=== PATIENT | male | born 1985 ===

== ENCOUNTER 2018-01-29 01:29 | Inpatient (IN) | payer SELFPAY ==
[2018-01-29 01:46] VITALS: BMI 21.4
--- NOTE | 2018-01-29 01:52 | ED PDOC ---
Arrival/HPI - General Chief Complaint: GI Problem Time Seen by Provider: 01/29/18 01:35 Historian: Family - History of Present Illness Narrative History of Present Illness (Text): 01/29/18 01:52 Atilio Rojas is a 32 year old male, whose past medical history includes epilepsy, who presents to the Emergency department brought in by EMS for chest pain. As per relative, present in ER, patient began experiencing chest pain and vomiting tonight, notes patient ate pizza earlier. On arrival to Emergency department, patient had 2 seizure episodes, brother states he does not know when patient's last seizure was. Limited HPI and ROs secondary to pt's sedation following Ativan today. Symptom Onset: Gradual Symptom Course: Unchanged Activities at Onset: Light Context: Home Past Medical History - Provider Review Nursing Documentation Reviewed: Yes Family/Social History - Physician Review Nursing Documentation Reviewed: Yes Family/Social History: Unknown Family HX Allergies/Home Meds Allergies/Adverse Reactions: Allergies No Known Allergies Allergy (Unverified 01/29/18 01:53) Review of Systems - Review of Systems Systems not reviewed;Unavailable: Other (seizure) Cardiovascular: Chest Pain Gastrointestinal: Vomiting Neurological: Seizure Physical Exam Vital Signs Reviewed: Yes Vital Signs Pulse Resp BP Pulse Ox 01/29/18 04:51 79 18 116/74 98 01/29/18 01:57 93 H 18 146/85 93 L Temperature: Afebrile Blood Pressure: Normal Pulse: Regular Respiratory Rate: Normal Appearance: Positive for: Well-Appearing, Non-Toxic, Comfortable Pain Distress: None Mental Status: Positive for: other (Sedated currently, post seizure) - Systems Exam Head: Present: Atraumatic, Normocephalic Pupils: Present: PERRL Extroacular Muscles: Present: EOMI Conjunctiva: Present: Normal Mouth: Present: Moist Mucous Membranes Neck: Present: Normal Range of Motion Respiratory/Chest: Present: Clear to Auscultation, Good Air Exchange. No: Respiratory Distress, Accessory Muscle Use Cardiovascular: Present: Regular Rate and Rhythm, Normal S1, S2. No: Murmurs Abdomen: No: Tenderness, Distention, Peritoneal Signs Back: Present: Normal Inspection Upper Extremity: Present: Normal Inspection. No: Cyanosis, Edema Lower Extremity: Present: Normal Inspection. No: Edema Neurological: Present: GCS=15, CN II-XII Intact, Speech Normal Skin: Present: Warm, Dry, Normal Color. No: Rashes Psychiatric: Present: Other (Sedated currently post seizure) Medical Decision Making ED Course and Treatment: 01/29/18 01:52 Impression: 32 year old male presents for chest pain and vomiting. Plan: -- CT Head w/o contrast -- EKG --Chest X-ray -- Labs, cardiac enzymes, lipase -- Zofran -- Ativan -- Reassess and disposition Progress Notes: Called to bedside, pt had 2 seizure episodes in ER. Ativan ordered. 01/29/18 04:22 CT Head shows: Brain: Unremarkable. No hemorrhage. No significant white matter disease. No edema. Ventricles: Unremarkable. No ventriculomegaly. Bones/joints: Unremarkable. No acute fracture. Soft tissues: Unremarkable. Sinuses: Unremarkable. No acute sinusitis. Mastoid air cells: Unremarkable. No mastoid effusion. Orbits: The globe and lens are intact. IMPRESSION: No evidence of an acute intracranial hemorrhage, midline shift or mass effect is identified. 01/29/18 04:00 Reviewed EKG, NSR at 99 bpm. Non-specific ST/T wave changes. 01/29/18 05:09 Chest X-ray reviewed, shows no acute processes. 01/29/18 04:43 Case discussed with medical grade shoemaker division service manager, who is aware and agrees with plan. Case discussed with Dr. York, who is aware and agrees with plan. Accepts pt in to hospitalist service. Pt will go to Telemetry observation for recurrent seizures and chest pain. - Lab Interpretations Lab Results: 01/29/18 02:12 01/29/18 02:12 Lab Results 01/29/18 02:12: WBC 7.9, RBC 4.80, Hgb 15.8, Hct 45.5, MCV 94.8, MCH 32.9, MCHC 34.7, RDW 13.7, Plt Count 226, MPV 9.9 01/29/18 02:12: Sodium 146, Potassium 3.6, Chloride 106, Carbon Dioxide 19 L, Anion Gap 24 H, BUN 21, Creatinine 1.3, Est GFR ( Amer) > 60, Est GFR ( Non-Af Amer) > 60, Random Glucose 98, Calcium 9.2, Total Bilirubin 0.5, AST 32, ALT 18, Alkaline Phosphatase 83, Lactate Dehydrogenase 340, Total Creatine Kinase 198, Troponin I < 0.01, Total Protein 7.6, Albumin 4.3, Globulin 3.2, Albumin/Globulin Ratio 1.3, Lipase 176 01/29/18 02:12: PT 10.0, INR 0.88 L, APTT 29.4 - RAD Interpretation Radiology Orders: 01/29/18 01:54 HEAD W/O CONTRAST [CT] Stat CHEST PORTABLE [RAD] Stat Service Loss Control Consultant: Radiologist - Medication Orders Current Medication Orders: Discontinued Medications Lorazepam (Ativan) 2 mg IVP ONCE ONE Stop: 01/29/18 02:01 Last Admin: 01/29/18 02:13 Dose: Lorazepam (Ativan) 2 mg IVP ONCE ONE Stop: 01/29/18 02:05 Last Admin: 01/29/18 02:14 Dose: Ondansetron HCl (Zofran Inj) 4 mg IVP ONCE ONE Stop: 01/29/18 02:05 Last Admin: 01/29/18 02:14 Dose: - Scribe Statement The provider has reviewed the documentation as recorded by the Prudence Lilly Provider Scribe Attestation: All medical record entries made by the Simeoniblily were at my direction and personally dictated by me. I have reviewed the chart and agree that the record accurately reflects my personal performance of the history, physical exam, medical decision making, and the department course for this patient. I have also personally directed, reviewed, and agree with the discharge instructions and disposition. Disposition/Present on Arrival - Present on Arrival Any Indicators Present on Arrival: No History of DVT/PE: No History of Uncontrolled Diabetes: No Urinary Catheter: No History of Decub. Ulcer: No History Surgical Site Infection Following: None - Disposition Have Diagnosis and Disposition been Completed?: Yes Diagnosis: Recurrent seizures, Chest pain Disposition: HOSPITALIZED Disposition Time: 03:49 Patient Plan: Observation Patient Problems: Current Active Problems Problem Status Onset Chest pain Acute Recurrent seizures Acute Condition: STABLE
[2018-01-29 02:29] LABS: HEMOGLOBIN 15.8 g/dL (14.0-18.0); MEAN CELL VOLUME 94.8 fl (80.0-105.0); MEAN CORPUSCULAR HEMOGLOBIN 32.9 pg (25.0-35.0); MEAN CORPUSCULAR HGB CONC 34.7 g/dl (31.0-37.0); MEAN PLATELET VOLUME 9.9 fl (7.0-11.0); RBC 4.8 10^6/uL (3.5-6.1); RED CELL DISTRIBUTION WIDTH 13.7 % (11.5-14.5); WHITE BLOOD COUNT 7.9 10^3/ul (4.5-11.0)
[2018-01-29 02:34] LABS: ALB/GLOB RATIO 1.3 (1.1-1.8); ALBUMIN 4.3 g/dL (3.0-4.8); ALT/SGPT 18 U/L (7-56); AST/SGOT 32 U/L (17-59); BLOOD UREA NITROGEN 21 mg/dL (7-21); CALCIUM 9.2 mg/dL (8.4-10.5); GFR AFRICAN-AMERICAN > 60; GFR NON-AFRICAN AMERICAN > 60; LIPASE 176 U/L (23-300)
[2018-01-29 02:36] LABS: INR 0.88 (0.93-1.08); PARTIAL THROMBOPLASTIN TIME 29.4 Seconds (25.1-36.5)
[2018-01-29 02:45] LABS: TROPONIN I < 0.01 ng/mL
--- NOTE | 2018-01-29 06:10 | CP.PCM.HP ---
<Agustin Baldwin - Last Filed: 01/29/18 07:21> History of Present Illness - History of Present Illness History of Present Illness: Agustin Baldwin D.O. PGY-1, Internal Medicine Resident, History and Physical for Dr York. Pt is a 32 yo male with a PMH of epilepsy presents to the ED after vomiting for approximately 30 mins. Per his brother, the pt began vomiting after he ate pizza. The vomiting began "normal" and later had about a teaspoon of blood in it. Pt had epigastric pain before vomiting. His brother reports that the pt lives in [facility] and is [place] the [place]. History and ROS limited due to pt postictal state. Pt takes Lamotrigin 100mg. Pt had witnessed seuzure while in the hospital. Pt's brother reports that he has had seizures like this before, but he is not sure when. PMH: seizure disorder PSH: unknown FH: Father- 74yo alive and well, Mother 46yo alive and well Social: lives in [facility], tobacco 1 ppd for "many years", some alcohol, denies drugs PMD: in [facility] Allergies: NKDA Present on Admission - Present on Admission Any Indicators Present on Admission: No Review of Systems - Review of Systems Review of Systems: limited due to pt postictal state - Cardiovascular Cardiovascular: Chest Pain - Gastrointestinal Gastrointestinal: Hematemesis Past Patient History - Past Social History Smoking Status: Heavy Smoker > 10 Cigarettes Daily Alcohol: Occasional Drugs: Denies - CARDIAC Hx Cardiac Disorders: No - PULMONARY Hx Respiratory Disorders: No Hx Asthma: No - NEUROLOGICAL Hx Seizures: Yes - HEENT Hx HEENT Problems: No Hx Blind: No - RENAL Hx Chronic Kidney Disease: No - ENDOCRINE/METABOLIC Hx Endocrine Disorders: No - HEMATOLOGICAL/ONCOLOGICAL Hx Blood Disorders: No - INTEGUMENTARY Hx Dermatological Problems: No - MUSCULOSKELETAL/RHEUMATOLOGICAL Hx Musculoskeletal Disorders: No - GASTROINTESTINAL Hx Gastrointestinal Disorders: No - GENITOURINARY/GYNECOLOGICAL Hx Genitourinary Disorders: No - PSYCHIATRIC Hx Psychophysiologic Disorder: No Hx Substance Use: No - SURGICAL HISTORY Hx Surgeries: No Meds Allergies/Adverse Reactions: Allergies Allergy/AdvReac Type Severity Reaction Status Date / Time No Known Allergies Allergy Unverified 01/29/18 01:53 Physical Exam - Constitutional Additional comments: postictal - Head Exam Head Exam: ATRAUMATIC, NORMOCEPHALIC - Neck Exam Neck exam: Positive for: Normal Inspection - Respiratory Exam Respiratory Exam: Clear to Auscultation Bilateral, NORMAL BREATHING PATTERN - Cardiovascular Exam Cardiovascular Exam: REGULAR RHYTHM, RRR, +S1, +S2 - GI/Abdominal Exam GI & Abdominal Exam: Normal Bowel Sounds, Soft - Rectal Exam Rectal Exam: Deferred - Extremities Exam Extremities exam: Positive for: normal inspection. Negative for: pedal edema - Neurological Exam Neurological exam: Altered - Skin Skin Exam: Normal Color Results - Vital Signs Recent Vital Signs: Last Vital Signs Temp Pulse 79 01/29/18 04:51 Resp 18 01/29/18 04:51 BP 116/74 01/29/18 04:51 Pulse Ox 98 01/29/18 04:51 - Labs Result Diagrams: 01/29/18 02:12 01/29/18 02:12 Assessment & Plan - Assessment and Plan (Free Text) Assessment: Pt is a 32 yo male with a PMH of epilepsy presents to the ED after vomiting for approximately 30 mins. Plan: Seizure Disorder -Start Keppra 500mg BID -Start Ativan for seizure precautions -ordered urine drug screen -order CK, rule out rhabdo -order neuro checks -ordered Lamotrigine levels -consulted neuro, Dr Magaña -Ordered CT, awaiting results -ordered EKG -NPO Vomiting -ordered HA1C, awaiting results -ordered lipid panel, awaiting results -ordered mag, phos, TSH, trop awaiting results Ppx -GI ppx, protonix 40mg <Chela GAMEZ,Ernesto - Last Filed: 01/29/18 09:27> Results - Vital Signs Recent Vital Signs: Last Vital Signs Temp 97.9 F 01/29/18 08:05 Pulse 88 01/29/18 08:05 Resp 18 01/29/18 08:05 BP 103/51 L 01/29/18 08:05 Pulse Ox 98 01/29/18 08:05 - Labs Result Diagrams: 01/29/18 02:12 01/29/18 02:12 Labs: Laboratory Results - last 24 hr 01/29/18 01/29/18 01/29/18 06:40 06:40 08:30 Phosphorus 4.3 Magnesium 2.0 Troponin I < 0.01 Triglycerides 47 Cholesterol 125 L LDL Cholesterol Direct 51 HDL Cholesterol 58 TSH 3rd Generation 1.49 Urine Color Yellow Urine Appearance Clear Urine pH 6.0 Ur Specific [place] >= 1.030 Urine Protein Negative Urine Glucose (UA) Negative Urine Ketones Negative Urine Blood Negative Urine Nitrate Negative Urine Bilirubin Negative Urine Urobilinogen 0.2 Ur Leukocyte Esterase Negative Urine Opiates Screen Urine Methadone Screen Ur Barbiturates Screen Ur Phencyclidine Scrn Ur Amphetamines Screen U Benzodiazepines Scrn U Oth Cocaine Metabols U Cannabinoids Screen 01/29/18 08:30 Phosphorus Magnesium Troponin I Triglycerides Cholesterol LDL Cholesterol Direct HDL Cholesterol TSH 3rd Generation Urine Color Urine Appearance Urine pH Ur Specific [place] Urine Protein Urine Glucose (UA) Urine Ketones Urine Blood Urine Nitrate Urine Bilirubin Urine Urobilinogen Ur Leukocyte Esterase Urine Opiates Screen Negative Urine Methadone Screen Negative Ur Barbiturates Screen Negative Ur Phencyclidine Scrn Negative Ur Amphetamines Screen Negative U Benzodiazepines Scrn Negative U Oth Cocaine Metabols Negative U Cannabinoids Screen Negative Attending/Attestation - Attestation I have personally seen and examined this patient.: Yes I have fully participated in the care of the patient.: Yes I have reviewed all pertinent clinical information: Yes Notes (Text): -I agree with the above H&P completed by the resident physician with the following additions and/or changes: -The patient is a 32 year old man with a history of epilepsy who is being admitted to the telemetry trejo recurrent witnessed seizures and acute gastroenteritis. He reportedly takes Lamotrigine at home. History limited due to patients post-ictal state. Will check serum Lamotrigine levels, urine drug screen and CPK with next lab draw. Aggressive IVFs. NPO and swallow evaluation. Q4hour neuro checks as well as seizure and fall precautions. Will also start Keppra 500mg IV Q12hrs alongside PRN IV Ativan for seizures. Neurology has been consulted for further recommendations.
[2018-01-29] MEDS: Sodium Chloride 0.9% 1,000 ML IV SCH ×3 (06:29→19:35)
[2018-01-29 07:17] LABS: HDL CHOLESTEROL 58 mg/dL (29-60)
[2018-01-29 07:23] LABS: TROPONIN I < 0.01 ng/mL
[2018-01-29 07:28] LABS: LDL CHOLESTEROL 51 mg/dL (0-129)
[2018-01-29 08:49] LABS: URINE BILIRUBIN NEGATIVE (NEGATIVE); URINE BLOOD NEGATIVE (NEGATIVE); URINE GLUCOSE (UA) NEGATIVE (NEGATIVE); URINE LEUKOCYTE ESTERASE NEGATIVE Leu/uL (NEGATIVE); URINE PROTEIN NEGATIVE mg/dL (<30 mg/dL); URINE UROBILINOGEN 0.2 E.U./dL (<1 E.U./dL)
[2018-01-29 08:50] LABS: URINE APPEARANCE CLEAR (CLEAR); URINE COLOR YELLOW (YELLOW)
--- NOTE | 2018-01-29 08:56 | RAD ---
Date of service: 01/29/2018 HISTORY: seizure COMPARISON: No prior. FINDINGS: LUNGS: No active pulmonary disease. PLEURA: No significant pleural effusion identified, no pneumothorax apparent. CARDIOVASCULAR: Normal. OSSEOUS STRUCTURES: No significant abnormalities. VISUALIZED UPPER ABDOMEN: Normal. OTHER FINDINGS: None. IMPRESSION: No active disease.
[2018-01-29 09:13] LABS: BARBITURATES, UR NEGATIVE (NEGATIVE); BENZODIAZEPINES, UR NEGATIVE (NEGATIVE); OPIATES, UR NEGATIVE (NEGATIVE); PHENCYCLIDINE, UR NEGATIVE (NEGATIVE)
--- NOTE | 2018-01-29 09:40 | CT ---
Date of service: 01/29/2018 PROCEDURE: CT HEAD WITHOUT CONTRAST. HISTORY: seizure COMPARISON: None available. TECHNIQUE: Axial computed tomography images were obtained through the head/brain without intravenous contrast. Radiation dose: Total exam DLP = 907 mGy-cm. This CT exam was performed using one or more of the following dose reduction techniques: Automated exposure control, adjustment of the mA and/or kV according to patient size, and/or use of iterative reconstruction technique. FINDINGS: HEMORRHAGE: No intracranial hemorrhage. BRAIN: No mass effect or edema. No atrophy or chronic microvascular ischemic changes. VENTRICLES: Unremarkable. No hydrocephalus. CALVARIUM: Unremarkable. PARANASAL SINUSES: Unremarkable as visualized. No significant inflammatory changes. MASTOID AIR CELLS: Unremarkable as visualized. No inflammatory changes. OTHER FINDINGS: None. IMPRESSION: No acute findings
[2018-01-29] MEDS: levETIRAcetam 500mg IVPB 500 MG/100 ML BAG IV SCH ×2 (10:21→21:17)
[2018-01-29 10:28] LABS: BASO # 0.03 K/mm3 (0.0-2.0); BASO % 0.4 % (0.0-3.0); EOS # 0.1 (0.0-0.7); EOS % 1.4 % (1.5-5.0); GRAN # 4.98 (1.4-6.5); GRAN % 64.8 % (50.0-68.0); HEMOGLOBIN 14.8 g/dL (14.0-18.0); LYMPH % 26.4 % (22.0-35.0); MEAN CELL VOLUME 94.5 fl (80.0-105.0); MEAN CORPUSCULAR HEMOGLOBIN 32.7 pg (25.0-35.0); MEAN CORPUSCULAR HGB CONC 34.7 g/dl (31.0-37.0); MEAN PLATELET VOLUME 9.6 fl (7.0-11.0); MONO # 0.5 (0.1-0.6); RBC 4.52 10^6/uL (3.5-6.1); RED CELL DISTRIBUTION WIDTH 13.7 % (11.5-14.5); WHITE BLOOD COUNT 7.7 10^3/ul (4.5-11.0)
[2018-01-29 10:49] LABS: BLOOD UREA NITROGEN 17 mg/dL (7-21); CALCIUM 8.8 mg/dL (8.4-10.5); GFR AFRICAN-AMERICAN > 60; GFR NON-AFRICAN AMERICAN > 60
[2018-01-29] MEDS ORDERED: levETIRAcetam 500 MG in Sodium Chloride 0.9% 100 ML IV ONE (10:50)
[2018-01-29] MEDS ORDERED: Propofol 10 mg/ml 1,000 MG/100 ML VIAL IV PRN (11:09)
[2018-01-29] MEDS ORDERED: Propofol 10 mg/ml 1,000 MG/100 ML VIAL ONE (11:12)
[2018-01-29] MEDS ORDERED: Propofol 10 mg/ml Inj (20 ML) IVP ONE (11:14)
--- NOTE | 2018-01-29 11:18 | CARD ---
APPROVED REPORT Date of service: 01/29/2018 EKG Measurement Heart [id number] <Conclusion> Normal sinus rhythm Possible Left atrial enlargement
--- NOTE | 2018-01-29 11:29 | PCM.PROC ---
<Owen Sanders - Last Filed: 01/29/18 11:29> Procedures Attestation:: I certify that I have explained the specified Operation(s) or Procedure(s), risks, benefits and reasonable alternatives to the Patient and/or other person responsible. The opportunity was given to ask questions and all questions answered - Intubation Time Out Performed: Yes Sedative: Other (propofol) Mg Given: 25 Laryngoscope: Gerson ET Tube Size: 8.0 ET Tube Secured at Depth: 23 ET Tube Secured [place]ar[place]: Lips ET Tube Placement Confirmation: Visualized Passing Through Cords, Breath Sounds Equal Bilaterally, No Breath Sounds Over Epigastrum, Confirmation w/Capnometry Patient Tolerated Procedure: Well Procedure Immediate Complications: None <John Hubbard - Last Filed: 01/29/18 15:31> Addendum Addendum: 01/29/18 15:30 patient was intubated in ER, procedure was supervised by ER attending
--- NOTE | 2018-01-29 11:56 | RAD ---
Date of service: 01/29/2018 HISTORY: post intubation COMPARISON: 01/29/2018 FINDINGS: LUNGS: No active pulmonary disease. Endotracheal tube in satisfactory position PLEURA: No significant pleural effusion identified, no pneumothorax apparent. CARDIOVASCULAR: Normal. OSSEOUS STRUCTURES: No significant abnormalities. VISUALIZED UPPER ABDOMEN: Normal. OTHER FINDINGS: None. IMPRESSION: No active disease.
[2018-01-29 12:01] LABS: ARTERIAL BLOOD GAS HCO3 18.8 mmol/L (21-28); ARTERIAL BLOOD GAS O2 SAT 99.4 % (95-98); ARTERIAL BLOOD GAS PCO2 41 mm/Hg (35-45); ARTERIAL BLOOD GAS PH 7.27 (7.35-7.45); ARTERIAL BLOOD GAS TCO2 20.1 mmol.L (22-28)
--- NOTE | 2018-01-29 12:24 | CP.PCM.CON ---
<PhyllisRajiv sanford - Last Filed: 01/29/18 12:20> History of Present Illness - History of Present Illness History of Present Illness: Rajiv Ferguson PGY2 ICU Consult Note for Dr. Hubbard Mr. Mcdonald is a 32-year-old male visiting from [facility] with a past medical history of epilepsy on Lamictal who presents to the ED with chest pain and vomiting with some bloody streaks for 30 minutes prior to arrival in ED. Per family, the patient is compliant with his medication and has a history of intubations due to prior episodes of seizures. In ED, the patient had no vomiting episodes but did have episodes of seizures despite being medicated with Ativan 2 mg 3 and Ativan 4 mg 2. Neurology was consulted and recommended to start the patient on Keppra. The patient continued to have seizures, and it was decided to intubate the patient for airway protection; he was intubated in the ED and placed on vent (TV 400/RR 16/FiO2 40%/PEEP 5). The patient was started on a propofol drip which was being uptitrated due to continuous seizures. ICU was consulted for management. Upon our arrival, the patient was noted to be on 30 mcg/kg of propofol and was having intermittent seizures. Dr. Armstrong, neurology, was examining the patient at the same time and requested a stat EEG and would then decide on the need for continuous EEG monitoring. 12 point ROS was not obtained due to intubation acuity of condition. The following information was obtained from earlier notes from chart. PMH: Epilepsy PSH: Unknown Meds: Lamictal Allergies: NKDA SHX: From [facility], smokes tobacco 1 PPD for many years, +EtOH, denies drug use FHx: Noncontributory Review of Systems - Review of Systems Systems not reviewed;Unavailable: Intubated Past Patient History - Past Medical History & Family History Past Medical History?: Yes Past Family History: Reviewed and not pertinent - Past Social History Smoking Status: Heavy Smoker > 10 Cigarettes Daily Alcohol: Occasional Drugs: Denies - CARDIAC Hx Cardiac Disorders: No - PULMONARY Hx Respiratory Disorders: No Hx Asthma: No - NEUROLOGICAL Hx Neurological Disorder: Yes Hx Seizures: Yes - HEENT Hx HEENT Problems: No Hx Blind: No - RENAL Hx Chronic Kidney Disease: No - ENDOCRINE/METABOLIC Hx Endocrine Disorders: No - HEMATOLOGICAL/ONCOLOGICAL Hx Blood Disorders: No - INTEGUMENTARY Hx Dermatological Problems: No - MUSCULOSKELETAL/RHEUMATOLOGICAL Hx Musculoskeletal Disorders: No - GASTROINTESTINAL Hx Gastrointestinal Disorders: No - GENITOURINARY/GYNECOLOGICAL Hx Genitourinary Disorders: No - PSYCHIATRIC Hx Psychophysiologic Disorder: No Hx Substance Use: No - SURGICAL HISTORY Hx Surgeries: No Meds Allergies/Adverse Reactions: Allergies Allergy/AdvReac Type Severity Reaction Status Date / Time No Known Allergies Allergy Unverified 01/29/18 01:53 - Medications Medications: Current Medications Sodium Chloride (Sodium Chloride 0.9%) 1,000 mls @ 150 mls/hr IV .Q6H40M [facility] Last Admin: 01/29/18 06:29 Dose: 150 mls/hr Levetiracetam (Keppra 500mg Ivpb) 500 mg in 100 mls @ 460 mls/hr IV Q12 [facility] Last Admin: 01/29/18 10:21 Dose: 460 mls/hr Lorazepam (Ativan) 2 mg IVP Q3H PRN; Protocol PRN Reason: Seizure activity Ondansetron HCl (Zofran Inj) 4 mg IVP Q4H PRN PRN Reason: Nausea/Vomiting Pantoprazole Sodium (Protonix Inj) 40 mg IVP DAILY [facility] Last Admin: 01/29/18 10:21 Dose: 40 mg Physical Exam - Constitutional Appears: Non-toxic, Other (currently seizing intermittently) - Head Exam Head Exam: NORMAL INSPECTION - Eye Exam Eye Exam: Conjunctival injection (b/l), Normal appearance, PERRL - ENT Exam Additional comments: intubated w/ endotracheal tube nose ring - Neck Exam Neck exam: Positive for: Normal Inspection - Respiratory Exam Respiratory Exam: Clear to Auscultation Bilateral, NORMAL BREATHING PATTERN. absent: Rales, Rhonchi, Wheezes - Cardiovascular Exam Cardiovascular Exam: RRR, +S1, +S2. absent: Systolic Murmur - GI/Abdominal Exam GI & Abdominal Exam: Normal Bowel Sounds, Soft. absent: Distended, Guarding, Tenderness - Extremities Exam Extremities exam: Positive for: normal inspection. Negative for: pedal edema - Neurological Exam Additional comments: UE and LE showing clonic movements being sedated - Skin Skin Exam: Normal Color, Warm Results - Vital Signs Recent Vital Signs: Last Vital Signs Temp 97.9 F 01/29/18 08:05 Pulse 79 01/29/18 11:40 Resp 19 01/29/18 11:40 BP 105/67 01/29/18 11:40 Pulse Ox 95 01/29/18 11:40 - Labs Result Diagrams: 01/29/18 10:10 01/29/18 10:10 Assessment & Plan - Assessment and Plan (Free Text) Assessment: 32-year-old male with a PMH of epilepsy presenting for chest pain and vomiting, noted to have continuous seizures while in the ED despite benzodiazepine treatment. Currently intubated, on propofol drip, receiving Keppra, and Ativan PRN. Plan: Neuro - neurology is consulted and are following - EEG stat ordered - Continue Keppra 500 mg every 12 - On propofol drip for sedation - Admit to ICU for monitoring and vent management - Maintain normothermia - CT head was reviewed and showed no acute hemorrhage Cardiovascular - Maintain MAP> 65 - BP is currently stable and not requiring pressors - Continue to monitor vital signs as propofol is titrated - EKG was reviewed and showed NSR @ 99bpm, with no ST-T wave changes Pulmonary - Patient is intubated due to airway protection - Continue ventilation - Head of bed > 30 - Oral hygiene - Suction as needed - Chest x-ray was reviewed and noted no infiltrates GI - NPO at this time - GI ppx Renal - CK was not elevated - Continue to monitor for any electrolyte abnormalities and replete as necessary ID - No current signs of infection - Maintain normothermia Heme - continue to monitor H/H - DVT ppx Endo - maintain euglycemia - TSH was WNL Dispo: We will continue ICU monitoring, and follow-up recommendations with neurology Case was reviewed and discussed with attending, Dr. Hubbard <John Hubbard - Last Filed: 01/29/18 15:40> Meds - Medications Medications: Current Medications Sodium Chloride (Sodium Chloride 0.9%) 1,000 mls @ 150 mls/hr IV .Q6H40M [facility] Last Admin: 01/29/18 13:35 Dose: 150 mls/hr Levetiracetam (Keppra 500mg Ivpb) 500 mg in 100 mls @ 460 mls/hr IV Q12 [facility] Last Admin: 01/29/18 10:21 Dose: 460 mls/hr Propofol (Diprivan) 1,000 mg in 100 mls @ 2.028 mls/hr IV .Q24H PRN; Protocol; 5 MCG/KG/MIN PRN Reason: TITRATE PER MD ORDER Last Titration: 01/29/18 13:40 Dose: 50 mcg/kg/min, 20.276 mls/hr Midazolam 100 mg/100ml in NS (Midazolam 100 Mg/100ml In Ns) 100 mg in 100 mls @ 1 mls/hr IV .Q24H PRN; Protocol; 1 MG/HR PRN Reason: seiz Last Admin: 01/29/18 13:59 Dose: 5 mg/hr, 5 mls/hr Lorazepam (Ativan) 2 mg IVP Q3H PRN; Protocol PRN Reason: Seizure activity Ondansetron HCl (Zofran Inj) 4 mg IVP Q4H PRN PRN Reason: Nausea/Vomiting Pantoprazole Sodium (Protonix Inj) 40 mg IVP DAILY [facility] Last Admin: 01/29/18 10:21 Dose: 40 mg Results - Vital Signs Recent Vital Signs: Last Vital Signs Temp 97.9 F 01/29/18 08:05 Pulse 84 01/29/18 12:46 Resp 18 01/29/18 12:46 BP 113/74 01/29/18 12:46 Pulse Ox 100 01/29/18 12:46 - Labs Result Diagrams: 01/29/18 10:10 01/29/18 10:10 Labs: Laboratory Results - last 24 hr 01/29/18 11:55 pCO2 41 pO2 143.0 H HCO3 18.8 L ABG pH 7.27 L ABG Total CO2 20.1 L ABG O2 Saturation 99.4 H ABG Base Excess -7.7 L ABG Potassium 2.8 L Sodium 145.0 Chloride 121.0 H Glucose 68 L Lactate 1.1 Mechanical Rate 16 FiO2 40.0 Tidal Volume 400 PEEP 5 Arterial Blood Potassium 2.8 L Attending/Attestation - Attestation I have personally seen and examined this patient.: Yes I have fully participated in the care of the patient.: Yes I have reviewed all pertinent clinical information: Yes Notes (Text): 01/29/18 15:31 32 yo male with status epilepticus, intubated, on Propofol drip 50 mcg/kg/min--> EEG showed continued seziures/SE-->versed at 10 mg/hr added and Dilantin 15 mg/ kg IV given. CTH-neg, patient does have a history seziures and this liekly a break through seziure. neuro (Dr. Armstrong) is on board-->agreed with above. [facility] accepted patient for cont EEG monitoring. Protective lung ventilation, oral hygiene and HOB>35, DVT/GI prophyalxis. IVF. ccm time 40 min 01/29/18 15:40
[2018-01-29 12:30] VITALS: RESP 18
[2018-01-29] MEDS: Propofol 10 mg/ml 1,000 MG/100 ML VIAL IV PRN ×2 (13:09→18:25)
--- NOTE | 2018-01-29 13:36 | CP.PCM.CON ---
History of Present Illness - History of Present Illness History of Present Illness: Luis Calderón PGY2 - Neurology Consult Note - Dr. Armstrong CC: Recurrent Seizures HPI: Patient is a 32 year old male with past medical history of epilepsy who presented to [facility] ED for chest pain/pressure and hemoptysis. Patient was evaluated in ED and discovered to have had multiple bouts of vomiting prior to admission with production of a tablespoon amount of bright red blood. Upon interviewing patient with family at bedside he was noted to have been on Lamictal 200mg for his seizure disorder. Of note patient is visiting family from [facility] where he receives all of his medical treatment. While in ED patient was noted to have had 2 episodes of generalized tonic clonic seizure activity around 2 AM. Patient was given Ativan with resolution of seizure activity. While being evaluated this morning in ED patient was noted to be lethargic with minimal response to questioning. Patient admitted to having a seizure disorder with last known seizure about 6 weeks prior. While in ED evaluating the patient he began to have seizure activity with generalized clonic tonic movements in all four extremities. Patient was given 2mg IVP of Ativan with mild resolution of symptoms. Patient was noted to continue to have seizure activity, another 4 gm of ativan was administered. Patient was witnessed to have posturing and figure four positioning. Patient was placed on propofol and intubated for airway protection. ICU was consulted and patient was transfered to ICU. 12 point ROS unobtainable secondary to seizure activity PMH: Epilepsy disorder, associated with generalized tonic clonic seizure PSH: Uknown SOCHX: Tobacco: 1 PPD multiple years, ETOH: Social, ID: Denies - Currentlly visiting from [facility] ALL: NKDA MEDS: Lamictal 200mg Daily Review of Systems - Review of Systems Systems not reviewed;Unavailable: Acuity of Condition Past Patient History - Past Medical History & Family History Past Medical History?: Yes Past Family History: Reviewed and not pertinent - Past Social History Smoking Status: Heavy Smoker > 10 Cigarettes Daily Alcohol: Occasional Drugs: Denies - CARDIAC Hx Cardiac Disorders: No - PULMONARY Hx Respiratory Disorders: No Hx Asthma: No - NEUROLOGICAL Hx Neurological Disorder: Yes Hx Seizures: Yes - HEENT Hx HEENT Problems: No Hx Blind: No - RENAL Hx Chronic Kidney Disease: No - ENDOCRINE/METABOLIC Hx Endocrine Disorders: No - HEMATOLOGICAL/ONCOLOGICAL Hx Blood Disorders: No - INTEGUMENTARY Hx Dermatological Problems: No - MUSCULOSKELETAL/RHEUMATOLOGICAL Hx Musculoskeletal Disorders: No - GASTROINTESTINAL Hx Gastrointestinal Disorders: No - GENITOURINARY/GYNECOLOGICAL Hx Genitourinary Disorders: No - PSYCHIATRIC Hx Psychophysiologic Disorder: No Hx Substance Use: No - SURGICAL HISTORY Hx Surgeries: No Meds Allergies/Adverse Reactions: Allergies Allergy/AdvReac Type Severity Reaction Status Date / Time No Known Allergies Allergy Unverified 01/29/18 01:53 - Medications Medications: Current Medications Sodium Chloride (Sodium Chloride 0.9%) 1,000 mls @ 150 mls/hr IV .Q6H40M [facility] Last Admin: 01/29/18 06:29 Dose: 150 mls/hr Levetiracetam (Keppra 500mg Ivpb) 500 mg in 100 mls @ 460 mls/hr IV Q12 [facility] Last Admin: 01/29/18 10:21 Dose: 460 mls/hr Propofol (Diprivan) 1,000 mg in 100 mls @ 2.028 mls/hr IV .Q24H PRN; Protocol; 5 MCG/KG/MIN PRN Reason: TITRATE PER MD ORDER Last Titration: 01/29/18 13:10 Dose: 45 mcg/kg/min, 18.248 mls/hr Midazolam 100 mg/100ml in NS (Midazolam 100 Mg/100ml In Ns) 100 mg in 100 mls @ 1 mls/hr IV .Q24H PRN; Protocol; 1 MG/HR PRN Reason: seiz Lorazepam (Ativan) 2 mg IVP Q3H PRN; Protocol PRN Reason: Seizure activity Ondansetron HCl (Zofran Inj) 4 mg IVP Q4H PRN PRN Reason: Nausea/Vomiting Pantoprazole Sodium (Protonix Inj) 40 mg IVP DAILY [facility] Last Admin: 01/29/18 10:21 Dose: 40 mg Physical Exam - Constitutional Additional comments: lethargic - Head Exam Head Exam: ATRAUMATIC, NORMAL INSPECTION, NORMOCEPHALIC - Eye Exam Eye Exam: EOMI, PERRL - ENT Exam Additional comments: Lateral eyebrow piercings bilaterally Nasal septum pierced - Respiratory Exam Respiratory Exam: Clear to Auscultation Bilateral, NORMAL BREATHING PATTERN - Cardiovascular Exam Cardiovascular Exam: REGULAR RHYTHM, +S1, +S2 - GI/Abdominal Exam GI & Abdominal Exam: Soft. absent: Tenderness - Extremities Exam Extremities exam: Negative for: pedal edema, tenderness - Neurological Exam Additional comments: Beginning of interview patient able to cooperate with most testing and answer questions AAOx3, appropriate speech, intact hearing comprehension Coordination intact, Mild dymetria bilaterally Strength 5/5 in all four extremities Heel to ramirez appropriate No tremor appreciated Patient noted to have generalized tonic clonic seizure activity x2 post interview, upper and lower extremity jerking movement, foaming of mouth, no biting of tongue, limited response during episodes - Psychiatric Exam Psychiatric exam: Normal Affect Additional comments: lethargic - Skin Skin Exam: Dry, Intact Additional comments: Multiple tattoos present on anterior chest and abdomen Results - Vital Signs Recent Vital Signs: Last Vital Signs Temp 97.9 F 01/29/18 08:05 Pulse 84 01/29/18 12:46 Resp 18 01/29/18 12:46 BP 113/74 01/29/18 12:46 Pulse Ox 100 01/29/18 12:46 - Labs Result Diagrams: 01/29/18 10:10 01/29/18 10:10 Labs: Laboratory Results - last 24 hr 01/29/18 11:55 pCO2 41 pO2 143.0 H HCO3 18.8 L ABG pH 7.27 L ABG Total CO2 20.1 L ABG O2 Saturation 99.4 H ABG Base Excess -7.7 L ABG Potassium 2.8 L Sodium 145.0 Chloride 121.0 H Glucose 68 L Lactate 1.1 Mechanical Rate 16 FiO2 40.0 Tidal Volume 400 PEEP 5 Arterial Blood Potassium 2.8 L Assessment & Plan - Assessment and Plan (Free Text) Assessment: 32 year old male with past medical history of epilepsy who presented to [facility] ED for hemoptysis and chest pain. Patient noted to have multiple episodes (~4) of generalized tonic clonic seizures requiring propofol and intubation. Patient to be transferred to ICU for further monitoring and stat EEG Plan: Epilepsy - Generalized tonic clonic seizure activity witnessed in hospital total 4 episodes - Ativan given with each episode, most recent episode requiring 6 mg Ativan - Prpofol gtt and intubation - Keppra 1 gram loading dose administered, keppra 500mg bid - Stat EEG - If EEG shows evidence of seizure activity while on propofol will need continuous EEG - Monitor for seizure activity - Further recommendations per Dr. Armstrong Patient seen and case and plan discussed with attending, Dr. Patti Daniels PGY2 - Date & Time Date: 01/29/18 Time: 13:41
[2018-01-29] MEDS: Midazolam 100 mg/100ml in NS 100 MG/100 ML SOL IV PRN (13:59)
[2018-01-29] MEDS ORDERED: Phenytoin 250 mg/5 ml Inj IVP ONE (14:08)
[2018-01-29] MEDS ORDERED: SODIUM CHLORIDE 0.9% IVPB STA (14:14)
[2018-01-29] MEDS ORDERED: PHENYTOIN IVPB STA (14:14)
--- NOTE | 2018-01-29 15:48 | CP.PCM.PN ---
Subjective - Date & Time of Evaluation Date of Evaluation: 01/29/18 Time of Evaluation: 11:00 - Subjective Subjective: Stefano Engel, PGY-1 Progress Note for Hospitalist Service Mr. Mcdonald is a 32 German speaking M who presented with a PMHx of seizure activity (on Lamotrigine 300 mg per day) who presented to the ED for evaluation of hematemesis. Of note the patient is visiting [place] from [facility] since . Last night the patient started to develop nausea after eating pizza and smoking a cigarette. He tried to rest but then developed a choking sensation and began to vomit. He vomited a few times and then started to notice blood in the vomit (~1 teaspoons worth). Currently the patient denies any nausea or any other symptoms. The patient has a history of epilepsy with tonic clonic seizures. His last seizure was 1.5 months ago and his lamotrigine dose was increased to 300 mg QD at that time. He also takes cetirazine to prevent rash associated with his lamotrigine. Patient has an established Neurologist in [facility]. ED nursing staff states the patient had two seizures after arriving in the ED last night. Ativan and keppra were utilized. Around 10:45am today the patient experienced three more seizures, lasting anywhere between one and four minutes each. The patient was intubated in the ED, given 10 mg more of Ativan and 24 mg of Propofol and admitted to the ICU for status epilepticus. Neurology consulted. PMH: Epilepsy PSH: Unknown Meds: Lamictal 300 Allergies: NKDA SHX: Visiting from [facility], smokes tobacco 1 PPD for many years, denies ETOH and drug use FHx: Noncontributory Objective - Vital Signs/Intake and Output Vital Signs (last 24 hours): Temp Pulse Resp BP Pulse Ox 97.9 F 84 18 113/74 100 01/29/18 08:05 01/29/18 12:46 01/29/18 12:46 01/29/18 12:46 01/29/18 12:46 Intake and Output: 01/29/18 01/29/18 06:59 18:59 Intake Total 10 Balance 10 - Medications Medications: Current Medications Sodium Chloride (Sodium Chloride 0.9%) 1,000 mls @ 150 mls/hr IV .Q6H40M [facility] Last Admin: 01/29/18 13:35 Dose: 150 mls/hr Levetiracetam (Keppra 500mg Ivpb) 500 mg in 100 mls @ 460 mls/hr IV Q12 [facility] Last Admin: 01/29/18 10:21 Dose: 460 mls/hr Propofol (Diprivan) 1,000 mg in 100 mls @ 2.028 mls/hr IV .Q24H PRN; Protocol; 5 MCG/KG/MIN PRN Reason: TITRATE PER MD ORDER Last Titration: 01/29/18 13:40 Dose: 50 mcg/kg/min, 20.276 mls/hr Midazolam 100 mg/100ml in NS (Midazolam 100 Mg/100ml In Ns) 100 mg in 100 mls @ 1 mls/hr IV .Q24H PRN; Protocol; 1 MG/HR PRN Reason: seiz Last Admin: 01/29/18 13:59 Dose: 5 mg/hr, 5 mls/hr Lorazepam (Ativan) 2 mg IVP Q3H PRN; Protocol PRN Reason: Seizure activity Ondansetron HCl (Zofran Inj) 4 mg IVP Q4H PRN PRN Reason: Nausea/Vomiting Pantoprazole Sodium (Protonix Inj) 40 mg IVP DAILY [facility] Last Admin: 01/29/18 10:21 Dose: 40 mg - Labs Labs: PT 10.0 SECONDS (9.4-12.5) 01/29/18 02:12 INR 0.88 (0.93-1.08) L 01/29/18 02:12 APTT 29.4 Seconds (25.1-36.5) 01/29/18 02:12 - Constitutional Appears: In Acute Distress - Head Exam Head Exam: NORMAL INSPECTION, NORMOCEPHALIC Additional comments: eyebrow and nose ring in place. - Eye Exam Eye Exam: EOMI, Normal appearance, PERRL Pupil Exam: NORMAL ACCOMODATION, PERRL - ENT Exam ENT Exam: Mucous Membranes Moist Additional comments: Intubated in ED - Neck Exam Neck Exam: Normal Inspection - Respiratory Exam Respiratory Exam: Clear to Ausculation Bilateral, Respiratory Distress - Cardiovascular Exam Cardiovascular Exam: REGULAR RHYTHM, +S1, +S2 - GI/Abdominal Exam GI & Abdominal Exam: Soft, Normal Bowel Sounds. absent: Tenderness, Mass, Organomegaly - Extremities Exam Extremities Exam: Full ROM. absent: Pedal Edema, Tenderness - Back Exam Back Exam: NORMAL INSPECTION - Neurological Exam Neurological Exam: Altered Neuro motor strength exam: Left Lower Extremity: 4, Right Lower Extremity: 4 Additional comments: multiple seizures witnessed. Assessment and Plan - Assessment and Plan (Free Text) Assessment: Epileptic Seizures Patient transferred to ICU for respiratory and seizure monitoring after multiple seizures and intubation in ED. Follow up Neuro recommendations for EEG and MRI results. Will continue to be monitored in ICU Continue Keppra, Ativan and Propofol drip Follow ICU recommendations Dispostion Awaiting patient transfer to [place] for continuous EEG monitoring Patient seen, case reviewed, and plan agreed upon with Dr. Grady. Stefano Engel, PGY-1
[2018-01-29] MEDS ORDERED: Pneumococcal 23-Valent Vaccine IM ONE (15:57)
[2018-01-30] MEDS: Sodium Chloride 0.9% 1,000 ML IV SCH ×2 (02:15→09:21)
[2018-01-30 05:20] LABS: ARTERIAL BLOOD GAS HCO3 22.7 mmol/L (21-28); ARTERIAL BLOOD GAS O2 SAT 99.6 % (95-98); ARTERIAL BLOOD GAS PCO2 35 mm/Hg (35-45); ARTERIAL BLOOD GAS PH 7.42 (7.35-7.45); ARTERIAL BLOOD GAS TCO2 23.8 mmol.L (22-28)
[2018-01-30 06:47] LABS: BASO # 0.02 K/mm3 (0.0-2.0); BASO % 0.3 % (0.0-3.0); EOS # 0.2 (0.0-0.7); EOS % 2.6 % (1.5-5.0); GRAN # 3.39 (1.4-6.5); GRAN % 57.8 % (50.0-68.0); HEMOGLOBIN 13.9 g/dL (14.0-18.0); LYMPH # 1.8 (1.2-3.4); LYMPH % 30.3 % (22.0-35.0); MEAN CELL VOLUME 95.1 fl (80.0-105.0); MEAN CORPUSCULAR HEMOGLOBIN 32.3 pg (25.0-35.0); MEAN CORPUSCULAR HGB CONC 33.9 g/dl (31.0-37.0); MEAN PLATELET VOLUME 9.6 fl (7.0-11.0); MONO # 0.5 (0.1-0.6); RBC 4.31 10^6/uL (3.5-6.1); RED CELL DISTRIBUTION WIDTH 14.2 % (11.5-14.5); WHITE BLOOD COUNT 5.9 10^3/ul (4.5-11.0)
[2018-01-30 07:11] LABS: BLOOD UREA NITROGEN 9 mg/dL (7-21); CALCIUM 8.2 mg/dL (8.4-10.5); GFR AFRICAN-AMERICAN > 60; GFR NON-AFRICAN AMERICAN > 60
--- NOTE | 2018-01-30 08:35 | RAD ---
Date of service: 01/30/2018 HISTORY: for eval COMPARISON: 01/29/2018. FINDINGS: The endotracheal tube terminates 6 cm proximal to the leydi. LUNGS: The lungs are well inflated and clear. PLEURA: No significant pleural effusion identified, no pneumothorax apparent. CARDIOVASCULAR: Normal. OSSEOUS STRUCTURES: No significant abnormalities. VISUALIZED UPPER ABDOMEN: Normal. OTHER FINDINGS: None. IMPRESSION: Endotracheal tube terminates 6 cm proximal to the leydi. No acute findings.
[2018-01-30] MEDS: Propofol 10 mg/ml 1,000 MG/100 ML VIAL IV PRN ×4 (09:07→23:42)
[2018-01-30] MEDS ORDERED: Magnesium 2 gm/50 ml NS 2 GM/50 ML BAG IVPB ONE (09:14)
[2018-01-30] MEDS: levETIRAcetam 500mg IVPB 500 MG/100 ML BAG IV SCH ×2 (09:22→21:42)
[2018-01-30] MEDS: Midazolam 100 mg/100ml in NS 100 MG/100 ML SOL IV PRN (10:09)
--- NOTE | 2018-01-30 11:04 | RAD ---
Date of service: 01/30/2018 HISTORY: confirm NGT placement COMPARISON: 01/30/2018 FINDINGS: LUNGS: No active pulmonary disease. PLEURA: No significant pleural effusion identified, no pneumothorax apparent. CARDIOVASCULAR: Normal. OSSEOUS STRUCTURES: No significant abnormalities. VISUALIZED UPPER ABDOMEN: Normal. OTHER FINDINGS: None. IMPRESSION: No active disease. Endotracheal tube and nasogastric tube in satisfactory position
--- NOTE | 2018-01-30 13:34 | CP.CCUPN ---
<Niles Ordaz - Last Filed: 01/30/18 15:00> CCU Subjective - Physician Review Subjective (Free Text): Niles Ordaz DO PGY-1, ICU Progress note for Dr. Reynoso Pt was seen and examined at bedside. ROS was unobtainable as pt is on sedation and intubated. As per nurse, pt required Ativan 2 mg IVP at around 6pm last night due to clonic movements in the bilateral lower extremities. Pt is currently on Propofol gtt 50 mcg/kg/min, Midazolam 6 mg/hr. Pt produced 2550 mL of clear yellow urine over the past 24 hours.. A 12-point ROS was unobtainable because pt is sedated and intubated. CCU Objective - Vital Signs / Intake & Output Vital Signs (Last 4 hours): Vital Signs Temp Pulse BP Pulse Ox 01/30/18 13:10 98.6 F 65 100 18 13:00 98.8 F 64 116/68 100 18 12:50 98.8 F 65 100 18 12:40 98.8 F 65 100 01/30/18 12:30 99.0 F 65 100 01/30/18 12:20 99.0 F 66 100 18 12:10 99.0 F 65 100 18 12:00 98.8 F 66 116/66 100 18 11:50 98.8 F 65 100 01/30/18 11:40 98.8 F 65 100 01/30/18 11:30 98.6 F 66 100 01/30/18 11:20 98.6 F 67 100 01/30/18 11:10 98.4 F 70 100 18 11:00 98.2 F 70 142/87 100 01/30/18 10:50 98.2 F 72 100 01/30/18 10:40 98.1 F 70 100 01/30/18 10:30 97.9 F 64 100 01/30/18 10:20 97.9 F 64 100 01/30/18 10:10 97.9 F 64 100 01/30/18 10:00 97.7 F 63 119/72 100 01/30/18 09:50 97.7 F 62 98 01/30/18 09:40 97.7 F 62 98 01/30/18 09:30 97.7 F 62 99 Intake and Output (Last 8hrs): Intake & Output 01/29/18 01/30/18 01/30/18 22:59 06:59 14:59 Intake Total 1620 2260 165 Output Total 1650 1550 Balance -30 710 165 Weight 67.585 kg Intake: IV 1620 2260 165 Left Forearm 1250 1920 Left Wrist 270 140 Right Forearm 100 Output: Urine 1650 1550 Urethral (Richards) 1650 1550 Other: Voiding Method Indwelling Catheter # Bowel Movements 0 - Physical Exam Head: Positive for: Atraumatic, Normocephalic Pupils: Positive for: Non-Reactive Extroacular Muscles: Positive for: Other (unable to be evaluated due to sedation ; negative dolls eye) Conjunctiva: Positive for: Normal, Other (positive corneal reflex on the right, negative corneal reflex on the left) Ears: Positive for: Normal Mouth: Positive for: Moist Mucous Membranes Nose (Internal): Positive for: Other ((+) NGT in place) Neck: Positive for: Normal Range of Motion Respiratory/Chest: Positive for: Clear to Auscultation, Good Air Exchange, Other (PRVC: 450/18/5/30%) Cardiovascular: Positive for: Regular Rate and Rhythm, Normal S1, S2. Negative for: Murmurs Abdomen: Positive for: Normal Bowel Sounds. Negative for: Peritoneal Signs Upper Extremity: Positive for: Normal Inspection, NORMAL PULSES, Swelling ( bilaterally), Capillary Refill < 2s. Negative for: Cyanosis, Edema Lower Extremity: Positive for: Normal Inspection, NORMAL PULSES, Capillary Refill < 2 s Neurological: Positive for: Other (sedated and intubated; negative dolls eye test; absent reaction to babinski test; absent reactive eye movement to caloric stimulation test). Negative for: GCS=15 (GCS= 3T; on sedation ) Skin: Positive for: Warm, Dry, Normal Color. Negative for: Rashes Psychiatric: Positive for: Other (Sedated currently post seizure) - Medications Active Medications: Active Medications Generic Name Dose Route Start Last Admin Trade Name Freq PRN Reason Stop Dose Admin Heparin Sodium (Porcine) 5,000 units 01/30/18 14:00 Heparin SC Q8 [facility] Protocol Levetiracetam 500 mg in 100 mls @ 460 mls/hr 01/29/18 10:00 01/30/18 09:22 Keppra 500mg Ivpb IV 460 mls/hr Q12 LUIS A Administration Propofol 1,000 mg in 100 mls @ 2.028 mls/hr 01/29/18 13:00 01/30/18 11:55 Diprivan IV 45 mcg/kg/min .Q24H PRN 18.248 mls/hr TITRATE PER MD ORDER Titration Protocol 5 MCG/KG/MIN Midazolam 100 mg/100ml in NS 100 mg in 100 mls @ 1 mls/hr 01/29/18 13:15 10:09 Midazolam 100 Mg/100ml In Ns IV 6 mg/hr .Q24H PRN 6 mls/hr seiz Administration Protocol 1 MG/HR Sodium Chloride 1,000 mls @ 100 mls/hr 01/30/18 09:15 01/30/18 09:21 Sodium Chloride 0.9% IV 100 mls/hr .Q10H LUIS A Administration Phenytoin 100 mg/ Sodium 52 mls @ 104 mls/hr 01/30/18 10:00 01/30/18 10:59 Chloride IVPB 104 mls/hr Q8 LUIS A Administration Lamotrigine 100 mg 01/30/18 10:00 01/30/18 10:57 Lamictal PO 100 mg DAILY LUIS A Administration Protocol Lorazepam 2 mg 01/29/18 06:00 01/29/18 18:25 Ativan IVP 2 mg Q3H PRN Administration Seizure activity Protocol Ondansetron HCl 4 mg 01/29/18 06:22 Zofran Inj IVP Q4H PRN Nausea/Vomiting Pantoprazole Sodium 40 mg 01/29/18 10:00 01/30/18 09:22 Protonix Inj IVP 40 mg DAILY LUIS A Administration - Patient Studies Lab Studies: Lab Studies 01/30/18 01/30/18 01/30/18 Range/Units 06:35 06:35 05:00 WBC 5.9 D (4.5-11.0) 10^3/ul RBC 4.31 (3.5-6.1) 10^6/uL Hgb 13.9 L (14.0-18.0) g/dL Hct 41.0 L (42.0-52.0) % MCV 95.1 (80.0-105.0) fl MCH 32.3 (25.0-35.0) pg MCHC 33.9 (31.0-37.0) g/dl RDW 14.2 (11.5-14.5) % Plt Count 165 (120.0-450.0) 10^3/uL MPV 9.6 (7.0-11.0) fl Gran % 57.8 (50.0-68.0) % Lymph % (Auto) 30.3 (22.0-35.0) % Ashe % (Auto) 9.0 H (1.0-6.0) % Eos % (Auto) 2.6 (1.5-5.0) % Baso % (Auto) 0.3 (0.0-3.0) % Gran # 3.39 (1.4-6.5) Lymph # (Auto) 1.8 (1.2-3.4) Ashe # (Auto) 0.5 (0.1-0.6) Eos # (Auto) 0.2 (0.0-0.7) Baso # (Auto) 0.02 (0.0-2.0) K/mm3 pCO2 35 (35-45) mm/Hg pO2 188.0 H (80-100) mm/Hg HCO3 22.7 (21-28) mmol/L ABG pH 7.42 (7.35-7.45) ABG Total CO2 23.8 (22-28) mmol.L ABG O2 Saturation 99.6 H (95-98) % ABG Base Excess -1.3 (-2.0-3.0) mmol/L ABG Potassium 3.5 L (3.6-5.2) mmol/L Sodium 148 146.0 (132-148) mmol/L Chloride 116 H 118.0 H (98-107) mmol/L Glucose 79 (75-110) mg/dl Lactate 1.0 (0.7-2.1) mmol/L FiO2 40.0 % Potassium 3.8 (3.6-5.0) mmol/L Carbon Dioxide 25 (21-33) mmol/L Anion Gap 11 (10-20) BUN 9 (7-21) mg/dL Creatinine 1.0 (0.8-1.5) mg/dl Est GFR ( Amer) > 60 Est GFR (Non-Af Amer) > 60 Random Glucose 84 (70-110) mg/dL Calcium 8.2 L (8.4-10.5) mg/dL Phosphorus 3.1 (2.5-4.5) mg/dL Magnesium 1.8 (1.7-2.2) mg/dL Arterial Blood Potassium 3.5 L (3.6-5.2) mmol/L Laboratory Results - last 24 hr 01/30/18 01/30/18 01/30/18 05:00 06:35 06:35 WBC 5.9 D RBC 4.31 Hgb 13.9 L Hct 41.0 L MCV 95.1 MCH 32.3 MCHC 33.9 RDW 14.2 Plt Count 165 MPV 9.6 Gran % 57.8 Lymph % (Auto) 30.3 Ashe % (Auto) 9.0 H Eos % (Auto) 2.6 Baso % (Auto) 0.3 Gran # 3.39 Lymph # (Auto) 1.8 Ashe # (Auto) 0.5 Eos # (Auto) 0.2 Baso # (Auto) 0.02 pCO2 35 pO2 188.0 H HCO3 22.7 ABG pH 7.42 ABG Total CO2 23.8 ABG O2 Saturation 99.6 H ABG Base Excess -1.3 ABG Potassium 3.5 L Sodium 146.0 148 Chloride 118.0 H 116 H Glucose 79 Lactate 1.0 FiO2 40.0 Potassium 3.8 Carbon Dioxide 25 Anion Gap 11 BUN 9 Creatinine 1.0 Est GFR ( Amer) > 60 Est GFR (Non-Af Amer) > 60 Random Glucose 84 Calcium 8.2 L Phosphorus 3.1 Magnesium 1.8 Arterial Blood Potassium 3.5 L Review of Systems - Review of Systems Systems not reviewed;Unavailable: Intubated (and sedated) Critical Care Progress Note - Ventilator Checklist Head of Bed 30 Degrees: Yes Daily Sedation Vacation: Yes Daily Assessment of Readiness to Wean: Yes Daily Spontaneous Breathing Trial: Yes PUD Prophalyxis: Yes DVT Prophylaxis: Yes Oral Care with Chlorhexidine Gluconate {CHG}: Yes - Vent Settings MODE:: PRVC TIDAL VOLUME:: 450 RESP RATE:: 18 FIO2:: 30 PEEP:: 5 - Extremities/Vascular Does the Patient have a Central Venous Catheter?: No Does the Patient have a Richards Catheter?: Yes - Restraints Justification for Restraints: High risk for self extubation - Prophylaxis GI Prophylaxis GI: PPI - Prophylaxis DVT Prophylaxis DVT: Heparin SQ - Nutrition Nutrition: Nutrition Category Date Time Status Regular Diet [DIET] Diets 01/29/18 Lunch Ordered Assessment/Plan - Assessment and Plan (Free Text) Assessment: Mr. Mcdonald is a 32-year-old male visiting from [facility] with a past medical history of epilepsy on Lamictal who presents to the ED with chest pain and vomiting with some bloody streaks for 30 minutes prior to arrival in ED. Per family, the patient is compliant with his medication and has a history of intubations due to prior episodes of seizures. In ED, the patient had no vomiting episodes but did have episodes of seizures despite being medicated with Ativan 2 mg 3 and Ativan 4 mg 2. Neurology was consulted and recommended to start the patient on Keppra. The patient continued to have seizures, and it was decided to intubate the patient for airway protection. ICU was consulted for management. Upon our arrival, the patient was noted to be on 30 mcg/kg of propofol and was having intermittent seizures. Dr. Armstrong, neurology, ordered an EEG and would like continuous EEG monitoring. This facility does not have have continuous EEG monitoring service, and neurology will arrange transfer to a facility that does have these capabilities. Currently , pt is sedated on propofol 50 mcg/kg/min and Midazolam 6 mg/hr. Pt is on PRVC ( 450/18/5/30%). Plan: Neuro: - s/p status epilepticus - Head CT (01/29) shows no acute findings - prolactin was normal at 11.3 - EEG x2 done, pending official read - we will try to slowly wean the pt off of midazolam and propofol - continue phenytoin, lamotrigine as per neuro - with f/u with neuro recs for management and planned transfer to EEG continuous monitoring capable facility Cardio: - maintain MAP>65 mmHg - pt is hemodynamically stable Pulm: - we will continue lung protective ventilator management - keep tidal volumes between 4-8 mL/kg of ideal body weight - daily ventilator weaning - HoB >30 degrees - oral hygiene and suction - CXR (01/30) shows no active disease, NGT and ETT in satisfactory position GI: - NGT in place - PPX with PTX Renal: - NS decreased to 100 mL/hr - maintain euvolemia - continue to replete electrolytes as needed ID: - still no leukocytosis - pt remains afebrile Heme: - H/H stable PPX: PTX for GI; SCDs and Heparin SQ for VTE Dispo: Pt will continue to be managed in the ICU; transfer to continuous-EEG- monitor-capable facility as per Neuro Case reviewed and discussed with attending physician; Dr. Reynoso <Frandy Reynoso - Last Filed: 01/30/18 15:26> CCU Objective - Vital Signs / Intake & Output Vital Signs (Last 4 hours): Vital Signs Temp Pulse BP Pulse Ox 01/30/18 13:30 98.6 F 65 99 01/30/18 13:20 98.8 F 65 99 01/30/18 13:10 98.6 F 65 100 01/30/18 13:00 98.8 F 64 116/68 100 01/30/18 12:50 98.8 F 65 100 01/30/18 12:40 98.8 F 65 100 01/30/18 12:30 99.0 F 65 100 01/30/18 12:20 99.0 F 66 100 01/30/18 12:10 99.0 F 65 100 01/30/18 12:00 98.8 F 66 116/66 100 01/30/18 11:50 98.8 F 65 100 01/30/18 11:40 98.8 F 65 100 01/30/18 11:30 98.6 F 66 100 Intake and Output (Last 8hrs): Intake & Output 01/30/18 01/30/18 01/30/18 06:59 14:59 22:59 Intake Total 2260 210 Output Total 1550 Balance 710 210 Intake: IV 2260 210 Left Forearm 1920 Left Wrist 140 Right Forearm 100 Output: Urine 1550 Urethral (Richards) 1550 - Medications Active Medications: Active Medications Generic Name Dose Route Start Last Admin Trade Name Freq PRN Reason Stop Dose Admin Heparin Sodium (Porcine) 5,000 units 01/30/18 14:00 01/30/18 14:08 Heparin SC 5,000 units Q8 [facility] A Administration Protocol Levetiracetam 500 mg in 100 mls @ 460 mls/hr 01/29/18 10:00 01/30/18 09:22 Keppra 500mg Ivpb IV 460 mls/hr Q12 [facility] A Administration Propofol 1,000 mg in 100 mls @ 2.028 mls/hr 01/29/18 13:00 01/30/18 14:24 Diprivan IV 40 mcg/kg/min .Q24H PRN 16.22 mls/hr TITRATE PER MD ORDER Titration Protocol 5 MCG/KG/MIN Midazolam 100 mg/100ml in NS 100 mg in 100 mls @ 1 mls/hr 01/29/18 13:15 10:09 Midazolam 100 Mg/100ml In Ns IV 6 mg/hr .Q24H PRN 6 mls/hr seiz Administration Protocol 1 MG/HR Sodium Chloride 1,000 mls @ 100 mls/hr 01/30/18 09:15 01/30/18 09:21 Sodium Chloride 0.9% IV 100 mls/hr .Q10H [facility]IS A Administration Phenytoin 100 mg/ Sodium 52 mls @ 104 mls/hr 01/30/18 10:00 01/30/18 14:26 Chloride IVPB 104 mls/hr Q8 LUIS A Administration Lamotrigine 100 mg 01/30/18 10:00 01/30/18 10:57 Lamictal PO 100 mg DAILY LUIS A Administration Protocol Lorazepam 2 mg 01/29/18 06:00 01/29/18 18:25 Ativan IVP 2 mg Q3H PRN Administration Seizure activity Protocol Ondansetron HCl 4 mg 01/29/18 06:22 Zofran Inj IVP Q4H PRN Nausea/Vomiting Pantoprazole Sodium 40 mg 01/29/18 10:00 01/30/18 09:22 Protonix Inj IVP 40 mg DAILY LUIS A Administration - Patient Studies Lab Studies: Lab Studies 01/30/18 01/30/18 01/30/18 Range/Units 06:35 06:35 05:00 WBC 5.9 D (4.5-11.0) 10^3/ul RBC 4.31 (3.5-6.1) 10^6/uL Hgb 13.9 L (14.0-18.0) g/dL Hct 41.0 L (42.0-52.0) % MCV 95.1 (80.0-105.0) fl MCH 32.3 (25.0-35.0) pg MCHC 33.9 (31.0-37.0) g/dl RDW 14.2 (11.5-14.5) % Plt Count 165 (120.0-450.0) 10^3/uL MPV 9.6 (7.0-11.0) fl Gran % 57.8 (50.0-68.0) % Lymph % (Auto) 30.3 (22.0-35.0) % Ashe % (Auto) 9.0 H (1.0-6.0) % Eos % (Auto) 2.6 (1.5-5.0) % Baso % (Auto) 0.3 (0.0-3.0) % Gran # 3.39 (1.4-6.5) Lymph # (Auto) 1.8 (1.2-3.4) Ashe # (Auto) 0.5 (0.1-0.6) Eos # (Auto) 0.2 (0.0-0.7) Baso # (Auto) 0.02 (0.0-2.0) K/mm3 pCO2 35 (35-45) mm/Hg pO2 188.0 H (80-100) mm/Hg HCO3 22.7 (21-28) mmol/L ABG pH 7.42 (7.35-7.45) ABG Total CO2 23.8 (22-28) mmol.L ABG O2 Saturation 99.6 H (95-98) % ABG Base Excess -1.3 (-2.0-3.0) mmol/L ABG Potassium 3.5 L (3.6-5.2) mmol/L Sodium 148 146.0 (132-148) mmol/L Chloride 116 H 118.0 H (98-107) mmol/L Glucose 79 (75-110) mg/dl Lactate 1.0 (0.7-2.1) mmol/L FiO2 40.0 % Potassium 3.8 (3.6-5.0) mmol/L Carbon Dioxide 25 (21-33) mmol/L Anion Gap 11 (10-20) BUN 9 (7-21) mg/dL Creatinine 1.0 (0.8-1.5) mg/dl Est GFR ( Amer) > 60 Est GFR (Non-Af Amer) > 60 Random Glucose 84 (70-110) mg/dL Calcium 8.2 L (8.4-10.5) mg/dL Phosphorus 3.1 (2.5-4.5) mg/dL Magnesium 1.8 (1.7-2.2) mg/dL Arterial Blood Potassium 3.5 L (3.6-5.2) mmol/L Laboratory Results - last 24 hr 01/30/18 01/30/18 01/30/18 05:00 06:35 06:35 WBC 5.9 D RBC 4.31 Hgb 13.9 L Hct 41.0 L MCV 95.1 MCH 32.3 MCHC 33.9 RDW 14.2 Plt Count 165 MPV 9.6 Gran % 57.8 Lymph % (Auto) 30.3 Ashe % (Auto) 9.0 H Eos % (Auto) 2.6 Baso % (Auto) 0.3 Gran # 3.39 Lymph # (Auto) 1.8 Ashe # (Auto) 0.5 Eos # (Auto) 0.2 Baso # (Auto) 0.02 pCO2 35 pO2 188.0 H HCO3 22.7 ABG pH 7.42 ABG Total CO2 23.8 ABG O2 Saturation 99.6 H ABG Base Excess -1.3 ABG Potassium 3.5 L Sodium 146.0 148 Chloride 118.0 H 116 H Glucose 79 Lactate 1.0 FiO2 40.0 Potassium 3.8 Carbon Dioxide 25 Anion Gap 11 BUN 9 Creatinine 1.0 Est GFR ( Amer) > 60 Est GFR (Non-Af Amer) > 60 Random Glucose 84 Calcium 8.2 L Phosphorus 3.1 Magnesium 1.8 Arterial Blood Potassium 3.5 L Critical Care Progress Note - Nutrition Nutrition: Nutrition Category Date Time Status Regular Diet [DIET] Diets 01/29/18 Lunch Ordered Attending/Attestation - Attestation I have personally seen and examined this patient.: Yes I have fully participated in the care of the patient.: Yes I have reviewed all pertinent clinical information: Yes Notes (Text): 01/30/18 15:22 The patient was seen and examined at the bedside. Patient care was discussed with resident Medical records, lab studies were reviewed and management issues were discussed and formulated. Last 24H events reviewed. Agree with above treatment plans as outlined in Dr.Babayants' note with addition of the following: Respiratory Failure \ Hypoxemia \Encephalopathy \ Seizures \ -hemodynamic monitoring to maintain MAP>65 -mechanical ventilation and o2 supplementation to maintain Spo2 >90 Pao2>60 -monitor for TV 6ml\kg IBW and plateau pressure <30 -Abg and CXR reviewed, no visible opacification noted -f\u Bun\Cr and U\o; IVF with NS; replace e-lites -NPO and aspiration precautions -continue propofol and versed; ativan PRN -f\u repeat EEG -neurology team f\u -continue antiseizure meds and precautions -awaiting tfer to a continuous EEG capable facility as per neurology team (pt was accepted, we are awaiting bed) -DVT \ PUD prophylaxis CCM time 33min
--- NOTE | 2018-01-30 13:36 | CP.PCM.PN ---
Subjective - Date & Time of Evaluation Date of Evaluation: 01/30/18 Time of Evaluation: 08:30 - Subjective Subjective: Luis Daniels PGY2 - Neurology Progress note for Dr. Armstrong Patient seen and examined this AM. Past 24 hours patient has had increased titration of propofol and additional versed for sedation. patient was noted to have seizure like activity yesterday evening according to nursing notes, patient was given Ativan. Patient is sedated and intubated, ROS unobtainable. Objective - Vital Signs/Intake and Output Vital Signs (last 24 hours): Temp Pulse Resp BP Pulse Ox 98.6 F 65 18 116/68 100 01/30/18 13:10 01/30/18 13:10 01/30/18 08:00 01/30/18 13:00 01/30/18 13:10 Intake and Output: 01/30/18 01/30/18 06:59 18:59 Intake Total 2260 165 Output Total 1550 Balance 710 165 - Medications Medications: Current Medications Heparin Sodium (Porcine) (Heparin) 5,000 units SC Q8 LUIS A PRN Reason: Protocol Levetiracetam (Keppra 500mg Ivpb) 500 mg in 100 mls @ 460 mls/hr IV Q12 LUIS A Last Admin: 01/30/18 09:22 Dose: 460 mls/hr Propofol (Diprivan) 1,000 mg in 100 mls @ 2.028 mls/hr IV .Q24H PRN; Protocol; 5 MCG/KG/MIN PRN Reason: TITRATE PER MD ORDER Last Titration: 01/30/18 11:55 Dose: 45 mcg/kg/min, 18.248 mls/hr Midazolam 100 mg/100ml in NS (Midazolam 100 Mg/100ml In Ns) 100 mg in 100 mls @ 1 mls/hr IV .Q24H PRN; Protocol; 1 MG/HR PRN Reason: seiz Last Admin: 01/30/18 10:09 Dose: 6 mg/hr, 6 mls/hr Sodium Chloride (Sodium Chloride 0.9%) 1,000 mls @ 100 mls/hr IV .Q10H LUIS A Last Admin: 01/30/18 09:21 Dose: 100 mls/hr Phenytoin 100 mg/ Sodium (Chloride) 52 mls @ 104 mls/hr IVPB Q8 LUIS A Last Admin: 01/30/18 10:59 Dose: 104 mls/hr Lamotrigine (Lamictal) 100 mg PO DAILY LUIS A PRN Reason: Protocol Last Admin: 01/30/18 10:57 Dose: 100 mg Lorazepam (Ativan) 2 mg IVP Q3H PRN; Protocol PRN Reason: Seizure activity Last Admin: 01/29/18 18:25 Dose: 2 mg Ondansetron HCl (Zofran Inj) 4 mg IVP Q4H PRN PRN Reason: Nausea/Vomiting Pantoprazole Sodium (Protonix Inj) 40 mg IVP DAILY [facility] Last Admin: 01/30/18 09:22 Dose: 40 mg - Labs Labs: 01/30/18 06:35 01/30/18 06:35 PT 10.0 SECONDS (9.4-12.5) 01/29/18 02:12 INR 0.88 (0.93-1.08) L 01/29/18 02:12 APTT 29.4 Seconds (25.1-36.5) 01/29/18 02:12 - Constitutional Appears: Other (intubated and sedated ) - Head Exam Head Exam: ATRAUMATIC, NORMAL INSPECTION, NORMOCEPHALIC - Respiratory Exam Respiratory Exam: Clear to Ausculation Bilateral, NORMAL BREATHING PATTERN - Cardiovascular Exam Cardiovascular Exam: REGULAR RHYTHM, +S1, +S2 - GI/Abdominal Exam GI & Abdominal Exam: Soft, Normal Bowel Sounds - Neurological Exam Additional comments: Sedated, no tremors or postruing noted on exam - Skin Skin Exam: Dry, Intact Assessment and Plan - Assessment and Plan (Free Text) Assessment: 32 year old male with past medical history of epilepsy who presented to [facility] ED for hemoptysis and chest pain. Patient noted to have multiple episodes (~4) of generalized tonic clonic seizures requiring propofol and intubation. Patient currently managed in ICU awaiting transfer four outpatient facility. Plan: Status Epilepticus in setting of underlying Epilepsy disorder - Multiple generalized tonic clonic seizure activity resistant to Ativan and keppra load in prior 24 hours - Currently sedated with Propofol 40mcg, Versed 6mcg - Keppra 500mg BID - Dilantin 100mg Q8H - Lamictal 100mg Daily restarted from home medications - EEG from today without evidence of seizure activity - Continue sedation with recommendations to not titrate Propofol below 20mcg and keep Versed 6 mcg until tomorrow morning Patient case and plan discussed with attending Dr. Patti Daniels PGY2
--- NOTE | 2018-01-30 17:40 | PCM.EEG ---
Electroencephalogram Report - Electroencephalogram Report Procedure Date: 01/29/18 Interpretation: Indication: Status epilepticus. Medications were reviewed. Technical: This is a digitally recorded electroencephalogram. The international 10-20 electrode placement system is used for scalp electrode placement. Eighteen channels of scalp EEG are recorded Another channel was used for for ECG. The data are stored digitally and reviewed in reformatted montages for optimal display. Diffuse Abnormality: No well formed alpha activity was seen. Focal abnormality: Intermittent focal slowing was seen. Mainly over the Right temporal area. Impression: This EEG is abnormal. Epileptiform discharge was seen. This can represent a potential seizure focus. Some focal slowing was seen, suggestive of a focal abnormality. Clinical correlation is needed.
--- NOTE | 2018-01-30 17:42 | PCM.EEG ---
Electroencephalogram Report - Electroencephalogram Report Procedure Date: 01/30/18 Interpretation: Indication: Seizure activity. Medications were reviewed. Technical: This is a digitally recorded electroencephalogram. The international 10-20 electrode placement system is used for scalp electrode placement. Eighteen channels of scalp EEG are recorded Another channel was used for for ECG. The data are stored digitally and reviewed in reformatted montages for optimal display. Background: 9 to 10 hertz alpha activity was seen. Maximal over the posterior head region. These activities are symmetric on both sides. Description: No focal slowing was seen. No seizure like activity was observed during this recording. Diffuse Abnormality: Increased beta activity was seen intermittently. Impression: Normal EEG. No focal slowing no seizure like activity was observed. Correlation with clinical findings is needed.
--- NOTE | 2018-01-30 19:08 | CP.PCM.PN ---
<Stefano Engel - Last Filed: 01/30/18 19:50> Subjective - Date & Time of Evaluation Date of Evaluation: 01/30/18 Time of Evaluation: 07:30 - Subjective Subjective: Stefano Engel PGY-1 Progress Note for Hospitalist Service Patient is sedated and intubated in the ICU, and was seen and examined at bedside. Per nursing, patient had seizure activity early yesterday evening. Objective - Vital Signs/Intake and Output Vital Signs (last 24 hours): Temp Pulse Resp BP Pulse Ox 100.0 F H 86 18 148/93 H 100 01/30/18 17:00 01/30/18 17:00 01/30/18 08:00 01/30/18 17:00 01/30/18 17:00 Intake and Output: 01/30/18 01/31/18 18:59 06:59 Intake Total 280 Balance 280 - Medications Medications: Current Medications Heparin Sodium (Porcine) (Heparin) 5,000 units SC Q8 [facility] PRN Reason: Protocol Last Admin: 01/30/18 14:08 Dose: 5,000 units Levetiracetam (Keppra 500mg Ivpb) 500 mg in 100 mls @ 460 mls/hr IV Q12 [facility] Last Admin: 01/30/18 09:22 Dose: 460 mls/hr Propofol (Diprivan) 1,000 mg in 100 mls @ 2.028 mls/hr IV .Q24H PRN; Protocol; 5 MCG/KG/MIN PRN Reason: TITRATE PER MD ORDER Last Admin: 01/30/18 17:39 Dose: 30 mcg/kg/min, 12.165 mls/hr Midazolam 100 mg/100ml in NS (Midazolam 100 Mg/100ml In Ns) 100 mg in 100 mls @ 1 mls/hr IV .Q24H PRN; Protocol; 1 MG/HR PRN Reason: seiz Last Admin: 01/30/18 10:09 Dose: 6 mg/hr, 6 mls/hr Sodium Chloride (Sodium Chloride 0.9%) 1,000 mls @ 100 mls/hr IV .Q10H [facility] Last Admin: 01/30/18 09:21 Dose: 100 mls/hr Phenytoin 100 mg/ Sodium (Chloride) 52 mls @ 104 mls/hr IVPB Q8 [facility] Last Admin: 01/30/18 14:26 Dose: 104 mls/hr Lamotrigine (Lamictal) 100 mg PO DAILY [facility] PRN Reason: Protocol Last Admin: 01/30/18 10:57 Dose: 100 mg Lorazepam (Ativan) 2 mg IVP Q3H PRN; Protocol PRN Reason: Seizure activity Last Admin: 01/29/18 18:25 Dose: 2 mg Ondansetron HCl (Zofran Inj) 4 mg IVP Q4H PRN PRN Reason: Nausea/Vomiting Pantoprazole Sodium (Protonix Inj) 40 mg IVP DAILY [facility] Last Admin: 01/30/18 09:22 Dose: 40 mg - Labs Labs: 01/30/18 06:35 01/30/18 06:35 PT 10.0 SECONDS (9.4-12.5) 01/29/18 02:12 INR 0.88 (0.93-1.08) L 01/29/18 02:12 APTT 29.4 Seconds (25.1-36.5) 01/29/18 02:12 - Eye Exam Pupil Exam: Fixed - ENT Exam Additional comments: intubated - Respiratory Exam Respiratory Exam: Clear to Ausculation Bilateral, NORMAL BREATHING PATTERN - Cardiovascular Exam Cardiovascular Exam: RRR, +S1, +S2 - GI/Abdominal Exam GI & Abdominal Exam: Soft, Normal Bowel Sounds - Neurological Exam Neurological Exam: Altered. absent: Awake, Oriented x3 Additional comments: intubated, no pain response - Skin Skin Exam: Dry, Normal Color Assessment and Plan - Assessment and Plan (Free Text) Assessment: Mr. Mcdonald is a 32 [place] African speaking M who presented with a past medical history of epilepsy who presented with hemoptysis. Patient noted to have multiple episodes of generalized tonic clonic seizures requiring Propofol and intubation. Patient currently managed in ICU awaiting transfer to outpatient facility. Status Epilepticus - Multiple generalized tonic clonic seizure activity resistant to Ativan and Keppra load - Currently sedated with Propofol 40mcg, Midazolam 6mcg - Keppra 500mg BID and Dilantin 100mg Q8H added - Lamictal 100mg Daily restarted from home medications - One EEG from today without evidence of seizure activity, while another showed some focal slowing, suggestive of a focal abnormality - per Neuro, do not titrate Propofol below 20mcg and keep Versed 6 mcg until tomorrow morning - Continue neuro recs regarding sedation Imaging - CXR: confirmed proper placement of endotracheal tube and nasogastric tube - continue to monitor Ventilator Settings: - TV of 450, PEEP 5, 18 RR and 30% FiO2 - continue to alter per ICU recommendations and clinical status Disposition - Patient awaiting placement in facility capable of continuous EEG monitoring Patient was seen, case reviewed, and plan agreed upon with Dr. Moseley. Stefano Engel, PGY-1 <Raymundo Moseley - Last Filed: 01/31/18 08:19> Objective - Vital Signs/Intake and Output Vital Signs (last 24 hours): Temp Pulse Resp BP Pulse Ox 98.1 F 57 L 18 124/79 100 01/31/18 07:50 01/31/18 07:50 01/31/18 07:10 01/31/18 07:00 01/31/18 07:50 Intake and Output: 01/31/18 01/31/18 06:59 18:59 Intake Total 862 Output Total 1050 Balance -188 - Medications Medications: Current Medications Heparin Sodium (Porcine) (Heparin) 5,000 units SC Q8 [facility] PRN Reason: Protocol Last Admin: 01/31/18 05:43 Dose: 5,000 units Levetiracetam (Keppra 500mg Ivpb) 500 mg in 100 mls @ 460 mls/hr IV Q12 [facility] Last Admin: 01/30/18 21:42 Dose: 460 mls/hr Propofol (Diprivan) 1,000 mg in 100 mls @ 2.028 mls/hr IV .Q24H PRN; Protocol; 5 MCG/KG/MIN PRN Reason: TITRATE PER MD ORDER Last Admin: 01/31/18 06:11 Dose: 38.96 mcg/kg/min, 15.8 mls/hr Midazolam 100 mg/100ml in NS (Midazolam 100 Mg/100ml In Ns) 100 mg in 100 mls @ 1 mls/hr IV .Q24H PRN; Protocol; 1 MG/HR PRN Reason: seiz Last Admin: 01/31/18 02:08 Dose: 6 mg/hr, 6 mls/hr Sodium Chloride (Sodium Chloride 0.9%) 1,000 mls @ 100 mls/hr IV .Q10H [facility] Last Admin: 01/31/18 05:45 Dose: 100 mls/hr Phenytoin 100 mg/ Sodium (Chloride) 52 mls @ 104 mls/hr IVPB Q8 [facility] Last Admin: 01/31/18 06:09 Dose: 104 mls/hr Lamotrigine (Lamictal) 100 mg PO DAILY [facility] PRN Reason: Protocol Last Admin: 01/30/18 10:57 Dose: 100 mg Lorazepam (Ativan) 2 mg IVP Q3H PRN; Protocol PRN Reason: Seizure activity Last Admin: 01/29/18 18:25 Dose: 2 mg Ondansetron HCl (Zofran Inj) 4 mg IVP Q4H PRN PRN Reason: Nausea/Vomiting Pantoprazole Sodium (Protonix Inj) 40 mg IVP DAILY [facility] Last Admin: 01/30/18 09:22 Dose: 40 mg - Labs Labs: 01/31/18 05:50 01/31/18 05:50 PT 10.0 SECONDS (9.4-12.5) 01/29/18 02:12 INR 0.88 (0.93-1.08) L 01/29/18 02:12 APTT 29.4 Seconds (25.1-36.5) 01/29/18 02:12 Attending/Attestation - Attestation I have personally seen and examined this patient.: Yes I have fully participated in the care of the patient.: Yes I have reviewed all pertinent clinical information, including history, physical exam and plan: Yes Notes (Text): 01/30/18 32 year old male with past medical history of seizure disorder who presented with hemoptysis. He was noted to have multiple seizure and intubated and admitted to the ICU. He is on propofol and midazolam for sedation. He is on keppra, lamictal and dilantin. Initial EEG was abnormal and repeat EEG was done today which was negative. Neurology is following. Currently awaiting to transfer to outpatient facility for continuous EEG monitoring. Continue with vent management as per jukebox route driver. Raymundo Moseley MD Hospitalist.
[2018-01-31] MEDS: Midazolam 100 mg/100ml in NS 100 MG/100 ML SOL IV PRN ×2 (02:08→18:07)
[2018-01-31] MEDS: Sodium Chloride 0.9% 1,000 ML IV SCH ×3 (04:00→13:38)
[2018-01-31] MEDS: Propofol 10 mg/ml 1,000 MG/100 ML VIAL IV PRN ×3 (06:11→18:13)
[2018-01-31 06:51] LABS: HEMOGLOBIN 14.8 g/dL (14.0-18.0); MEAN CELL VOLUME 94.5 fl (80.0-105.0); MEAN CORPUSCULAR HEMOGLOBIN 32.4 pg (25.0-35.0); MEAN CORPUSCULAR HGB CONC 34.3 g/dl (31.0-37.0); MEAN PLATELET VOLUME 10.3 fl (7.0-11.0); RBC 4.57 10^6/uL (3.5-6.1); RED CELL DISTRIBUTION WIDTH 14.1 % (11.5-14.5); WHITE BLOOD COUNT 6.3 10^3/ul (4.5-11.0)
[2018-01-31 06:53] LABS: ARTERIAL BLOOD GAS HCO3 20.6 mmol/L (21-28); ARTERIAL BLOOD GAS HEMOGLOBIN 13.6 g/dL (11.7-17.4); ARTERIAL BLOOD GAS O2 CONTENT 18.9 ML/dl (15-23); ARTERIAL BLOOD GAS O2 SAT 99.6 % (95-98); ARTERIAL BLOOD GAS PCO2 31 mm/Hg (35-45); ARTERIAL BLOOD GAS PH 7.43 (7.35-7.45); ARTERIAL BLOOD GAS TCO2 21.6 mmol.L (22-28)
[2018-01-31 07:10] LABS: ALB/GLOB RATIO 1.1 (1.1-1.8); ALBUMIN 3.2 g/dL (3.0-4.8); ALT/SGPT 28 U/L (7-56); AST/SGOT 39 U/L (17-59); BLOOD UREA NITROGEN 8 mg/dL (7-21); CALCIUM 8.3 mg/dL (8.4-10.5); GFR AFRICAN-AMERICAN > 60; GFR NON-AFRICAN AMERICAN > 60
[2018-01-31] MEDS ORDERED: Potassium Chloride 20 mEq ER Tab PO STA (07:26)
[2018-01-31] MEDS ORDERED: Potassium Chloride 40 mEq/30 ml LIQ UD PO STA (08:40)
[2018-01-31] MEDS: levETIRAcetam 500mg IVPB 500 MG/100 ML BAG IV SCH (09:02)
--- NOTE | 2018-01-31 11:47 | CP.PCM.PN ---
<Stefano Engel - Last Filed: 01/31/18 11:43> Subjective - Date & Time of Evaluation Date of Evaluation: 01/31/18 Time of Evaluation: 06:00 - Subjective Subjective: Stefano Engel PGY-1 Progress Note for Hospitalist Service Patient seen and evaluated at bedside. Patient is currently intubated in ICU and sedated on Midazolam and Propofol. Per nursing, no seizure activity was noticed overnight. Objective - Vital Signs/Intake and Output Vital Signs (last 24 hours): Temp Pulse Resp BP Pulse Ox 99.1 F 56 L 18 136/96 H 100 01/31/18 10:30 01/31/18 10:30 01/31/18 07:10 01/31/18 10:00 01/31/18 10:30 Intake and Output: 01/31/18 01/31/18 06:59 18:59 Intake Total 862 411 Output Total 1050 Balance -188 411 - Medications Medications: Current Medications Heparin Sodium (Porcine) (Heparin) 5,000 units SC Q8 [facility] PRN Reason: Protocol Last Admin: 01/31/18 05:43 Dose: 5,000 units Levetiracetam (Keppra 500mg Ivpb) 500 mg in 100 mls @ 460 mls/hr IV Q12 [facility] Last Admin: 01/31/18 09:02 Dose: 460 mls/hr Propofol (Diprivan) 1,000 mg in 100 mls @ 2.028 mls/hr IV .Q24H PRN; Protocol; 5 MCG/KG/MIN PRN Reason: TITRATE PER MD ORDER Last Titration: 01/31/18 10:30 Dose: 25 mcg/kg/min, 10.138 mls/hr Midazolam 100 mg/100ml in NS (Midazolam 100 Mg/100ml In Ns) 100 mg in 100 mls @ 1 mls/hr IV .Q24H PRN; Protocol; 1 MG/HR PRN Reason: seiz Last Titration: 01/31/18 08:38 Dose: 0 mg/hr, 0 mls/hr Sodium Chloride (Sodium Chloride 0.9%) 1,000 mls @ 100 mls/hr IV .Q10H [facility] Last Admin: 01/31/18 05:45 Dose: 100 mls/hr Phenytoin 100 mg/ Sodium (Chloride) 52 mls @ 104 mls/hr IVPB Q8 [facility] Last Admin: 01/31/18 06:09 Dose: 104 mls/hr Lamotrigine (Lamictal) 100 mg PO DAILY [facility] PRN Reason: Protocol Last Admin: 01/31/18 09:03 Dose: 100 mg Lorazepam (Ativan) 2 mg IVP Q3H PRN; Protocol PRN Reason: Seizure activity Last Admin: 01/29/18 18:25 Dose: 2 mg Ondansetron HCl (Zofran Inj) 4 mg IVP Q4H PRN PRN Reason: Nausea/Vomiting Pantoprazole Sodium (Protonix Inj) 40 mg IVP DAILY [facility] Last Admin: 01/31/18 09:04 Dose: 40 mg - Labs Labs: 01/31/18 05:50 01/31/18 05:50 PT 10.0 SECONDS (9.4-12.5) 01/29/18 02:12 INR 0.88 (0.93-1.08) L 01/29/18 02:12 APTT 29.4 Seconds (25.1-36.5) 01/29/18 02:12 - Head Exam Head Exam: ATRAUMATIC, NORMAL INSPECTION, NORMOCEPHALIC - Eye Exam Eye Exam: Normal appearance. absent: EOMI Additional comments: Pupillary reflex intact - ENT Exam Additional comments: Intubated - Respiratory Exam Respiratory Exam: Clear to Ausculation Bilateral, NORMAL BREATHING PATTERN (On PRVC) - Cardiovascular Exam Cardiovascular Exam: RRR, +S1, +S2 - GI/Abdominal Exam GI & Abdominal Exam: Soft, Normal Bowel Sounds. absent: Distended - Extremities Exam Extremities Exam: absent: Pedal Edema - Neurological Exam Neurological Exam: absent: Alert, Awake (sedated), Oriented x3 Additional comments: vestibulo-ocular reflex noted to be negative - Skin Skin Exam: Normal Color, Warm Assessment and Plan - Assessment and Plan (Free Text) Assessment: Mr. Mcdonald is a 32 German speaking M who presented with a past medical history of epilepsy who presented with hemoptysis. Patient noted to have multiple episodes of generalized tonic-clonic seizures requiring Propofol and intubation. Patient currently managed in ICU. Status Epilepticus: - Multiple generalized tonic clonic seizure activity resistant to Ativan and Keppra load - Currently coming down on the sedation- currently Propofol 15.8mcg, Midazolam 6mcg currently - Keppra 500mg BID and Dilantin 100mg Q8H - NS @100 cc/hr currently - Lamictal 100mg Daily restarted from home medications - Most recent EEG without evidence of seizure activity, while earlier EEG from some focal slowing, suggestive of a focal abnormality - Continue neuro recs regarding sedation and ICU recs regarding acute care - f/u repeat EEG once no longer sedated, and follow up with Neuro regarding outpatient medication recommendations and placement Ventilator Settings - TV of 450, PEEP 5, 18 RR and 30% FiO2 - continue to alter per ICU recommendations and clinical status Disposition - Patient will receive repeat EEG once off sedation. Patient was seen, case reviewed, and plan agreed upon with Dr. Moseley. Stefano Engel, PGY-1 <Raymundo Moseley - Last Filed: 01/31/18 12:27> Objective - Vital Signs/Intake and Output Vital Signs (last 24 hours): Temp Pulse Resp BP Pulse Ox 99.1 F 56 L 18 136/96 H 100 01/31/18 10:30 01/31/18 10:30 01/31/18 07:10 01/31/18 10:00 01/31/18 10:30 Intake and Output: 01/31/18 01/31/18 06:59 18:59 Intake Total 862 436 Output Total 1050 Balance -188 436 - Medications Medications: Current Medications Heparin Sodium (Porcine) (Heparin) 5,000 units SC Q8 [facility] PRN Reason: Protocol Last Admin: 01/31/18 05:43 Dose: 5,000 units Levetiracetam (Keppra 500mg Ivpb) 500 mg in 100 mls @ 460 mls/hr IV Q12 [facility] Last Admin: 01/31/18 09:02 Dose: 460 mls/hr Propofol (Diprivan) 1,000 mg in 100 mls @ 2.028 mls/hr IV .Q24H PRN; Protocol; 5 MCG/KG/MIN PRN Reason: TITRATE PER MD ORDER Last Titration: 01/31/18 12:16 Dose: Infused Midazolam 100 mg/100ml in NS (Midazolam 100 Mg/100ml In Ns) 100 mg in 100 mls @ 1 mls/hr IV .Q24H PRN; Protocol; 1 MG/HR PRN Reason: seiz Last Titration: 01/31/18 08:38 Dose: 0 mg/hr, 0 mls/hr Sodium Chloride (Sodium Chloride 0.9%) 1,000 mls @ 100 mls/hr IV .Q10H [facility] Last Admin: 01/31/18 05:45 Dose: 100 mls/hr Phenytoin 100 mg/ Sodium (Chloride) 52 mls @ 104 mls/hr IVPB Q8 [facility] Last Admin: 01/31/18 06:09 Dose: 104 mls/hr Lamotrigine (Lamictal) 100 mg PO DAILY [facility] PRN Reason: Protocol Last Admin: 01/31/18 09:03 Dose: 100 mg Lorazepam (Ativan) 2 mg IVP Q3H PRN; Protocol PRN Reason: Seizure activity Last Admin: 01/29/18 18:25 Dose: 2 mg Ondansetron HCl (Zofran Inj) 4 mg IVP Q4H PRN PRN Reason: Nausea/Vomiting Pantoprazole Sodium (Protonix Inj) 40 mg IVP DAILY [facility] Last Admin: 01/31/18 09:04 Dose: 40 mg - Labs Labs: 01/31/18 05:50 01/31/18 05:50 PT 10.0 SECONDS (9.4-12.5) 01/29/18 02:12 INR 0.88 (0.93-1.08) L 01/29/18 02:12 APTT 29.4 Seconds (25.1-36.5) 01/29/18 02:12 Attending/Attestation - Attestation I have personally seen and examined this patient.: Yes I have fully participated in the care of the patient.: Yes I have reviewed all pertinent clinical information, including history, physical exam and plan: Yes Notes (Text): 01/31/18 12:26 32 year old male with past medical history of seizure disorder who presented with hemoptysis. He was noted to have multiple seizure and intubated and admitted to the ICU. He was started on propofol and midazolam for sedation. He is on keppra, lamictal and dilantin. Initial EEG was abnormal and repeat EEG was done yesterday which was negative. Neurology is following. Plan to repeat EEG as his sedation is being tapered. Continue with vent management as per chemical project engineer. Will replete and repeat lytes (potassium). Raymundo Moseley MD Hospitalist.
--- NOTE | 2018-01-31 12:27 | CP.PCM.PN ---
Subjective - Date & Time of Evaluation Date of Evaluation: 01/31/18 Time of Evaluation: 09:05 - Subjective Subjective: Luis Daniels PGY 2 - Neurology Progress note for Dr. Armstrong Patient seen and examined. Patient continues to be under sedation with only propofol at this time. No seizure activity reported overnight. No acute events reported overnight. Patient to have continued weening off of sedation. ROS unobtainable secondary to sedation. Objective - Vital Signs/Intake and Output Vital Signs (last 24 hours): Temp Pulse Resp BP Pulse Ox 99.1 F 56 L 18 136/96 H 100 01/31/18 10:30 01/31/18 10:30 01/31/18 07:10 01/31/18 10:00 01/31/18 10:30 Intake and Output: 01/31/18 01/31/18 06:59 18:59 Intake Total 862 436 Output Total 1050 Balance -188 436 - Medications Medications: Current Medications Heparin Sodium (Porcine) (Heparin) 5,000 units SC Q8 [facility] PRN Reason: Protocol Last Admin: 01/31/18 05:43 Dose: 5,000 units Levetiracetam (Keppra 500mg Ivpb) 500 mg in 100 mls @ 460 mls/hr IV Q12 [facility] Last Admin: 01/31/18 09:02 Dose: 460 mls/hr Propofol (Diprivan) 1,000 mg in 100 mls @ 2.028 mls/hr IV .Q24H PRN; Protocol; 5 MCG/KG/MIN PRN Reason: TITRATE PER MD ORDER Last Titration: 01/31/18 12:16 Dose: Infused Midazolam 100 mg/100ml in NS (Midazolam 100 Mg/100ml In Ns) 100 mg in 100 mls @ 1 mls/hr IV .Q24H PRN; Protocol; 1 MG/HR PRN Reason: seiz Last Titration: 01/31/18 08:38 Dose: 0 mg/hr, 0 mls/hr Sodium Chloride (Sodium Chloride 0.9%) 1,000 mls @ 100 mls/hr IV .Q10H [facility] Last Admin: 01/31/18 05:45 Dose: 100 mls/hr Phenytoin 100 mg/ Sodium (Chloride) 52 mls @ 104 mls/hr IVPB Q8 [facility] Last Admin: 01/31/18 06:09 Dose: 104 mls/hr Lamotrigine (Lamictal) 100 mg PO DAILY [facility] PRN Reason: Protocol Last Admin: 01/31/18 09:03 Dose: 100 mg Lorazepam (Ativan) 2 mg IVP Q3H PRN; Protocol PRN Reason: Seizure activity Last Admin: 01/29/18 18:25 Dose: 2 mg Ondansetron HCl (Zofran Inj) 4 mg IVP Q4H PRN PRN Reason: Nausea/Vomiting Pantoprazole Sodium (Protonix Inj) 40 mg IVP DAILY [facility] Last Admin: 01/31/18 09:04 Dose: 40 mg - Labs Labs: 01/31/18 05:50 01/31/18 05:50 PT 10.0 SECONDS (9.4-12.5) 01/29/18 02:12 INR 0.88 (0.93-1.08) L 01/29/18 02:12 APTT 29.4 Seconds (25.1-36.5) 01/29/18 02:12 - Constitutional Appears: No Acute Distress - Head Exam Head Exam: ATRAUMATIC, NORMAL INSPECTION, NORMOCEPHALIC - Eye Exam Eye Exam: PERRL - Respiratory Exam Respiratory Exam: Clear to Ausculation Bilateral, NORMAL BREATHING PATTERN - Cardiovascular Exam Cardiovascular Exam: REGULAR RHYTHM, +S1, +S2 - GI/Abdominal Exam GI & Abdominal Exam: Soft, Normal Bowel Sounds - Extremities Exam Extremities Exam: absent: Pedal Edema, Tenderness - Neurological Exam Additional comments: Sedated on Propofol 35mcg Corneal reflex intact, patient witnessed to swallow Gag and cough reflex absent Unresponsive to painful stimuli, likely secondary to sedation No tremor or postruing witnessed No signs of clonus appreciated No hyperreflexic DTR - Skin Skin Exam: Dry, Intact Additional comments: Multiple tattoos present on anterior chest and neck Assessment and Plan - Assessment and Plan (Free Text) Assessment: 32 year old male with past medical history of epilepsy who presented to [facility] ED for hemoptysis and chest pain. Patient noted to have multiple episodes (~4) of generalized tonic clonic seizures requiring propofol and intubation. Patient currently being weened of sedation in ICU. Plan: Status Epilepticus in setting of underlying Epilepsy disorder - Multiple generalized tonic clonic seizure activity resistant to Ativan and keppra 1 gram load upon admission - Initial EEG with seizure evidence - Repeat EEG on sedation showing absence of seizure like activity - Keppra 500mg BID - Dilantin 100mg Q8H - Lamictal 100mg Daily restarted from home medications - Restarted sedation after witnessed and captured seizure activity on EEG - EEG showing one seizure and multiple focal discharges in right central parietal region - Continue Sedation with plan for potential transfer for continuous EEG monitoring with further sedation - Order Dilantin level - If patient is without transfer, repeat EEG in morning. Patient case and plan discussed with attending Dr. Patti Daniels PGY2
[2018-01-31] MEDS ORDERED: Dexmedetomidine 400mcg/100mL 400 MCG/100 ML BOTTLE IV PRN (12:49)
[2018-01-31] MEDS ORDERED: Dexmedetomidine 400mcg/100mL 400 MCG/100 ML BOTTLE ONE (12:51)
--- NOTE | 2018-01-31 13:43 | CP.CCUPN ---
Addendum entered and electronically signed by Niles Ordaz DO 01/31/18 14: 34: Propofol infusion was stopped for EEG, and pt proceeded to exhibit tonic-clonic movements. Pt became tachycardic (120-140), uncomfortable and clenching his jaw. Pt's temperature (via rectal probe) reached a tmax of 101.9. Pt was started on precedex, as per Dr. Armstrong, and EEG was continued. After completion, propofol infusion was started. Pt is currently on titratable Propofol 35 mcg/kg/ min and titratable Precedex 0.2 mcg/kg/min. Of note, lamictal level, which was drawn on admission, came back at 1.[address] Armstrong examined the pt at bedside, and reports that he will be transferring the pt to a continuous [id number] facility. Original Note: <Niles Ordaz - Last Filed: 01/31/18 13:28> CCU Subjective - Physician Review Subjective (Free Text): Niles Ordaz DO PGY-1, ICU Progress note for Dr. Hubbard Pt was seen and examined at bedside. ROS was unobtainable as pt is on sedation and intubated. As per nurse, pt had a fever, t max 100.4 overnight, which was managed with cooling to the axilla and groin. Pt produced 2000 mL of clear green -tinted urine over the past 24 hours. Green tinted urine is due to a metabolite of propofol. Pt is currently on Propofol 35 mcg/kg/min. Versed was discontinued this morning. A 12-point ROS was unobtainable because pt is sedated and intubated. CCU Objective - Vital Signs / Intake & Output Vital Signs (Last 4 hours): Vital Signs Temp Pulse BP Pulse Ox 01/31/18 10:30 99.1 F 56 L 100 01/31/18 10:20 99.0 F 54 L 100 01/31/18 10:10 98.8 F 60 100 01/31/18 10:00 98.8 F 64 136/96 H 100 01/31/18 09:50 98.6 F 71 100 01/31/18 09:40 98.4 F 59 L 100 01/31/18 09:30 98.2 F 64 100 Intake and Output (Last 8hrs): Intake & Output 01/30/18 01/31/18 01/31/18 22:59 06:59 14:59 Intake Total 2084 862 436 Output Total 1550 1050 Balance 534 -188 436 Weight 72 kg Intake: IV 2084 862 236 IVPB 100 Left Forearm 310 Left Wrist 1500 300 Right Antecubital 204 72 Right Forearm 190 Oral 0 Other 200 Output: Urine 1550 1050 Urethral (Richards) 1550 1050 Other: # Bowel Movements 0 0 - Physical Exam Head: Positive for: Atraumatic, Normocephalic Pupils: Positive for: PERRL Extroacular Muscles: Positive for: Other (unable to be evaluated due to sedation ; negative dolls eye) Conjunctiva: Positive for: Normal Mouth: Positive for: Moist Mucous Membranes Nose (Internal): Positive for: Other ((+) NGT in place) Respiratory/Chest: Positive for: Clear to Auscultation, Rhonchi (scattered), Other (PRVC: 450/18/5/30%) Cardiovascular: Positive for: Regular Rate and Rhythm, Normal S1, S2. Negative for: Murmurs Abdomen: Positive for: Normal Bowel Sounds. Negative for: Distention, Peritoneal Signs Back: Positive for: Normal Inspection Upper Extremity: Positive for: Normal Inspection, NORMAL PULSES, Swelling ( bilaterally). Negative for: Cyanosis, Edema Lower Extremity: Positive for: Normal Inspection, NORMAL PULSES Neurological: Positive for: Other (sedated and intubated; negative dolls eye test; absent reaction to babinski test; absent reactive eye movement to caloric stimulation test). Negative for: GCS=15 (GCS= 3T; on sedation ) Skin: Positive for: Warm, Dry, Normal Color. Negative for: Rashes Psychiatric: Positive for: Other (currently sedated for seizure control) - Medications Active Medications: Active Medications Generic Name Dose Route Start Last Admin Trade Name Freq PRN Reason Stop Dose Admin Heparin Sodium (Porcine) 5,000 units 01/30/18 14:00 01/31/18 05:43 Heparin SC 5,000 units Q8 LUIS A Administration Protocol Levetiracetam 500 mg in 100 mls @ 460 mls/hr 01/29/18 10:00 01/31/18 09:02 Keppra 500mg Ivpb IV 460 mls/hr Q12 LUIS A Administration Propofol 1,000 mg in 100 mls @ 2.028 mls/hr 01/29/18 13:00 01/31/18 12:33 Diprivan IV 25 mcg/kg/min .Q24H PRN 10.138 mls/hr TITRATE PER MD ORDER Administration Protocol 5 MCG/KG/MIN Midazolam 100 mg/100ml in NS 100 mg in 100 mls @ 1 mls/hr 01/29/18 13:15 08:38 Midazolam 100 Mg/100ml In Ns IV 0 mg/hr .Q24H PRN 0 mls/hr seiz Titration Protocol 1 MG/HR Sodium Chloride 1,000 mls @ 100 mls/hr 01/30/18 09:15 01/31/18 05:45 Sodium Chloride 0.9% IV 100 mls/hr .Q10H LUIS A Administration Phenytoin 100 mg/ Sodium 52 mls @ 104 mls/hr 01/30/18 10:00 01/31/18 06:09 Chloride IVPB 104 mls/hr Q8 LUIS A Administration Dexmedetomidine HCl 400 mcg in 100 mls @ 3.6 mls/hr 01/31/18 12:49 01/31/18 12:49 Precedex 400mcg/100ml IV 0.2 mcg/kg/hr .Q24H PRN 3.6 mls/hr Agitation Administration Protocol 0.2 MCG/KG/HR Lamotrigine 100 mg 01/30/18 10:00 01/31/18 09:03 Lamictal PO 100 mg DAILY LUIS A Administration Protocol Lorazepam 2 mg 01/29/18 06:00 01/29/18 18:25 Ativan IVP 2 mg Q3H PRN Administration Seizure activity Protocol Ondansetron HCl 4 mg 01/29/18 06:22 Zofran Inj IVP Q4H PRN Nausea/Vomiting Pantoprazole Sodium 40 mg 01/29/18 10:00 01/31/18 09:04 Protonix Inj IVP 40 mg DAILY LUIS A Administration - Patient Studies Lab Studies: Microbiology Studies 01/29/18 13:00 MRSA Culture (Admit) - Final Naris MRSA NOT DETECTED Lab Studies 01/31/18 01/31/18 01/31/18 Range/Units 07:25 05:50 05:50 WBC 6.3 (4.5-11.0) 10^3/ul RBC 4.57 (3.5-6.1) 10^6/uL Hgb 14.8 (14.0-18.0) g/dL Hct 43.2 (42.0-52.0) % MCV 94.5 (80.0-105.0) fl MCH 32.4 (25.0-35.0) pg MCHC 34.3 (31.0-37.0) g/dl RDW 14.1 (11.5-14.5) % Plt Count 186 (120.0-450.0) 10^3/uL MPV 10.3 (7.0-11.0) fl pCO2 (35-45) mm/Hg pO2 (80-100) mm/Hg HCO3 (21-28) mmol/L ABG pH (7.35-7.45) ABG Total CO2 (22-28) mmol.L ABG O2 Saturation (95-98) % ABG O2 Content (15-23) ML/dl ABG Base Excess (-2.0-3.0) mmol/L ABG Hemoglobin (11.7-17.4) g/dL ABG Carboxyhemoglobin (0.5-1.5) % POC ABG HHb (Measured) (0-5) % ABG Methemoglobin (0.0-3.0) % ABG O2 Capacity (16-24) mL/dl Hgb O2 Saturation (95.0-98.0) % FiO2 % Sodium 146 (132-148) mmol/L Potassium 3.5 L (3.6-5.0) mmol/L Chloride 113 H (98-107) mmol/L Carbon Dioxide 24 (21-33) mmol/L Anion Gap 13 (10-20) BUN 8 (7-21) mg/dL Creatinine 1.1 (0.8-1.5) mg/dl Est GFR ( Amer) > 60 Est GFR (Non-Af Amer) > 60 Random Glucose 81 (70-110) mg/dL Calcium 8.3 L (8.4-10.5) mg/dL Phosphorus 3.1 (2.5-4.5) mg/dL Magnesium 1.9 (1.7-2.2) mg/dL Total Bilirubin 0.5 (0.2-1.3) mg/dL AST 39 (17-59) U/L ALT 28 (7-56) U/L Alkaline Phosphatase 66 (38-126) U/L Total Protein 6.2 (5.8-8.3) g/dL Albumin 3.2 (3.0-4.8) g/dL Globulin 3.0 gm/dL Albumin/Globulin Ratio 1.1 (1.1-1.8) 01/31/18 Range/Units 05:42 WBC (4.5-11.0) 10^3/ul RBC (3.5-6.1) 10^6/uL Hgb (14.0-18.0) g/dL Hct (42.0-52.0) % MCV (80.0-105.0) fl MCH (25.0-35.0) pg MCHC (31.0-37.0) g/dl RDW (11.5-14.5) % Plt Count (120.0-450.0) 10^3/uL MPV (7.0-11.0) fl pCO2 31 L (35-45) mm/Hg pO2 133.0 H (80-100) mm/Hg HCO3 20.6 L (21-28) mmol/L ABG pH 7.43 (7.35-7.45) ABG Total CO2 21.6 L (22-28) mmol.L ABG O2 Saturation 99.6 H (95-98) % ABG O2 Content 18.9 (15-23) ML/dl ABG Base Excess -2.7 L (-2.0-3.0) mmol/L ABG Hemoglobin 13.6 (11.7-17.4) g/dL ABG Carboxyhemoglobin 1.2 (0.5-1.5) % POC ABG HHb (Measured) 0.4 (0-5) % ABG Methemoglobin 0.8 (0.0-3.0) % ABG O2 Capacity 19.0 (16-24) mL/dl Hgb O2 Saturation 97.6 (95.0-98.0) % FiO2 30.0 % Sodium (132-148) mmol/L Potassium (3.6-5.0) mmol/L Chloride (98-107) mmol/L Carbon Dioxide (21-33) mmol/L Anion Gap (10-20) BUN (7-21) mg/dL Creatinine (0.8-1.5) mg/dl Est GFR ( Amer) Est GFR (Non-Af Amer) Random Glucose (70-110) mg/dL Calcium (8.4-10.5) mg/dL Phosphorus (2.5-4.5) mg/dL Magnesium (1.7-2.2) mg/dL Total Bilirubin (0.2-1.3) mg/dL AST (17-59) U/L ALT (7-56) U/L Alkaline Phosphatase (38-126) U/L Total Protein (5.8-8.3) g/dL Albumin (3.0-4.8) g/dL Globulin gm/dL Albumin/Globulin Ratio (1.1-1.8) Laboratory Results - last 24 hr 01/31/18 01/31/18 01/31/18 05:42 05:50 05:50 WBC 6.3 RBC 4.57 Hgb 14.8 Hct 43.2 MCV 94.5 MCH 32.4 MCHC 34.3 RDW 14.1 Plt Count 186 MPV 10.3 pCO2 31 L pO2 133.0 H HCO3 20.6 L ABG pH 7.43 ABG Total CO2 21.6 L ABG O2 Saturation 99.6 H ABG O2 Content 18.9 ABG Base Excess -2.7 L ABG Hemoglobin 13.6 ABG Carboxyhemoglobin 1.2 POC ABG HHb (Measured) 0.4 ABG Methemoglobin 0.8 ABG O2 Capacity 19.0 Hgb O2 Saturation 97.6 FiO2 30.0 Sodium 146 Potassium 3.5 L Chloride 113 H Carbon Dioxide 24 Anion Gap 13 BUN 8 Creatinine 1.1 Est GFR ( Amer) > 60 Est GFR (Non-Af Amer) > 60 Random Glucose 81 Calcium 8.3 L Phosphorus Magnesium Total Bilirubin 0.5 AST 39 ALT 28 Alkaline Phosphatase 66 Total Protein 6.2 Albumin 3.2 Globulin 3.0 Albumin/Globulin Ratio 1.1 01/31/18 07:25 WBC RBC Hgb Hct MCV MCH MCHC RDW Plt Count MPV pCO2 pO2 HCO3 ABG pH ABG Total CO2 ABG O2 Saturation ABG O2 Content ABG Base Excess ABG Hemoglobin ABG Carboxyhemoglobin POC ABG HHb (Measured) ABG Methemoglobin ABG O2 Capacity Hgb O2 Saturation FiO2 Sodium Potassium Chloride Carbon Dioxide Anion Gap BUN Creatinine Est GFR ( Amer) Est GFR (Non-Af Amer) Random Glucose Calcium Phosphorus 3.1 Magnesium 1.9 Total Bilirubin AST ALT Alkaline Phosphatase Total Protein Albumin Globulin Albumin/Globulin Ratio Review of Systems - Review of Systems Systems not reviewed;Unavailable: Intubated (and sedated) Critical Care Progress Note - Ventilator Checklist Head of Bed 30 Degrees: Yes Daily Sedation Vacation: Yes Daily Assessment of Readiness to Wean: Yes Daily Spontaneous Breathing Trial: Yes PUD Prophalyxis: Yes DVT Prophylaxis: Yes Oral Care with Chlorhexidine Gluconate {CHG}: Yes - Vent Settings MODE:: PRVC TIDAL VOLUME:: 450 RESP RATE:: 18 FIO2:: 30 PEEP:: 5 - Extremities/Vascular Does the Patient have a Richards Catheter?: Yes Does the Patient need a Richards Catheter?: Yes (sedated) - Prophylaxis GI Prophylaxis GI: PPI - Prophylaxis DVT Prophylaxis DVT: Heparin SQ - Nutrition Nutrition: Nutrition Category Date Time Status NPO Diet [DIET] Diets 01/29/18 Breakfast Ordered Assessment/Plan - Assessment and Plan (Free Text) Assessment: Mr. Mcdonald is a 32-year-old male visiting from [facility] with a past medical history of epilepsy on Lamictal who presents to the ED with chest pain and vomiting with some bloody streaks for 30 minutes prior to arrival in ED. Per family, the patient is compliant with his medication and has a history of intubations due to prior episodes of seizures. In ED, the patient had no vomiting episodes but did have episodes of seizures despite being medicated with Ativan 2 mg 3 and Ativan 4 mg 2. Neurology was consulted and recommended to start the patient on Keppra. The patient continued to have seizures, and it was decided to intubate the patient for airway protection. ICU was consulted for management. Upon our arrival, the patient was noted to be on 30 mcg/kg of propofol and was having intermittent seizures. Dr. Armstrong, neurology, ordered an EEG and would like continuous EEG monitoring. This facility does not have have continuous EEG monitoring service, and neurology will arrange transfer to a facility that does have these capabilities. Pt was started on Propofol and Versed for management of seizure activity. Currently, pt is on propofol 35 mcg/kg/min and Midazolam has now been discontinued. Pt is on PRVC (450/18/5/30%). Plan: Neuro: - Head CT (01/29) shows no acute findings - prolactin was normal at 11.3 - EEG x2 done, pending official read - versed has been discontinued - continue propofol (currently at 35 mcg/kg/min); no tonic-clonic movements or seizure-activity are noted - continue phenytoin, lamotrigine as per neuro - Ativan PRN - with f/u with neuro recs for management and plan to transfer to EEG continuous monitoring capable facility - [place] transferring office [phone] contacted and there is no bed available yet Cardio: - maintain MAP>65 mmHg - pt is hemodynamically stable Pulm: - we will continue lung protective ventilator management - keep tidal volumes between 4-8 mL/kg of ideal body weight - daily ventilator weaning - HoB >30 degrees - oral hygiene and suction - CXR (01/30) shows no active disease, NGT and ETT in satisfactory position - f/u ABG GI: - NGT in place - PPX with protonix Renal: - NS decreased to 100 mL/hr - maintain euvolemia - continue to replete electrolytes as needed ID: - still no leukocytosis - we will treat fever with cooling, and Tylenol IV PRN Heme: - H/H stable PPX: PTX for GI; SCDs and Heparin SQ for VTE Dispo: Pt will continue to be managed in the ICU; transfer to continuous-EEG- monitor-capable facility as per Neuro Case reviewed and discussed with attending physician; Dr. Hubbard <John Hubbard - Last Filed: 01/31/18 16:01> CCU Objective - Vital Signs / Intake & Output Vital Signs (Last 4 hours): Vital Signs Temp Pulse BP Pulse Ox 01/31/18 14:50 100.0 F H 58 L 99 01/31/18 14:40 100.2 F H 63 99 01/31/18 14:30 100.4 F H 63 99 01/31/18 14:20 100.6 F H 65 98 01/31/18 14:10 100.9 F H 71 99 01/31/18 14:00 101.3 F H 72 131/78 100 01/31/18 13:50 101.3 F H 77 100 01/31/18 13:40 101.7 F H 82 100 01/31/18 13:30 101.7 F H 88 100 01/31/18 13:20 101.7 F H 99 H 100 01/31/18 13:10 101.7 F H 115 H 96 01/31/18 13:09 101.7 F H 111 H 147/88 100 01/31/18 13:00 101.3 F H 124 H 100 01/31/18 12:55 101.3 F H 122 H 151/88 H 100 01/31/18 12:50 100.8 F H 127 H 97 01/31/18 12:40 100.4 F H 112 H 100 01/31/18 12:30 100.0 F H 108 H 100 01/31/18 12:20 99.9 F H 82 100 01/31/18 12:10 99.7 F H 63 100 01/31/18 12:00 99.7 F H 71 128/67 100 Intake and Output (Last 8hrs): Intake & Output 01/31/18 01/31/18 01/31/18 06:59 14:59 22:59 Intake Total 862 454 Output Total 1050 Balance -188 454 Weight 158 lb 11.725 oz Intake: IV 862 254 IVPB 100 Left Wrist 300 Right Antecubital 72 Right Forearm 190 Oral 0 Other 200 Output: Urine 1050 Urethral (Richards) 1050 Other: # Bowel Movements 0 - Medications Active Medications: Active Medications Generic Name Dose Route Start Last Admin Trade Name Freq PRN Reason Stop Dose Admin Heparin Sodium (Porcine) 5,000 units 01/30/18 14:00 01/31/18 14:34 Heparin SC 5,000 units Q8 LUIS A Administration Protocol Levetiracetam 500 mg in 100 mls @ 460 mls/hr 01/29/18 10:00 01/31/18 09:02 Keppra 500mg Ivpb IV 460 mls/hr Q12 LUIS A Administration Propofol 1,000 mg in 100 mls @ 2.028 mls/hr 01/29/18 13:00 01/31/18 13:53 Diprivan IV 20 mcg/kg/min .Q24H PRN 8.11 mls/hr TITRATE PER MD ORDER Titration Protocol 5 MCG/KG/MIN Midazolam 100 mg/100ml in NS 100 mg in 100 mls @ 1 mls/hr 01/29/18 13:15 08:38 Midazolam 100 Mg/100ml In Ns IV 0 mg/hr .Q24H PRN 0 mls/hr seiz Titration Protocol 1 MG/HR Sodium Chloride 1,000 mls @ 100 mls/hr 01/30/18 09:15 01/31/18 13:38 Sodium Chloride 0.9% IV 100 mls/hr .Q10H LUIS A Administration Phenytoin 100 mg/ Sodium 52 mls @ 104 mls/hr 01/30/18 10:00 01/31/18 14:33 Chloride IVPB 104 mls/hr Q8 LUIS A Administration Dexmedetomidine HCl 400 mcg in 100 mls @ 3.6 mls/hr 01/31/18 12:49 01/31/18 13:53 Precedex 400mcg/100ml IV 1 mcg/kg/hr .Q24H PRN 18 mls/hr Agitation Titration Protocol 0.2 MCG/KG/HR Lamotrigine 100 mg 01/30/18 10:00 01/31/18 09:03 Lamictal PO 100 mg DAILY LUIS A Administration Protocol Lorazepam 2 mg 01/29/18 06:00 01/29/18 18:25 Ativan IVP 2 mg Q3H PRN Administration Seizure activity Protocol Ondansetron HCl 4 mg 01/29/18 06:22 Zofran Inj IVP Q4H PRN Nausea/Vomiting Pantoprazole Sodium 40 mg 01/29/18 10:00 01/31/18 09:04 Protonix Inj IVP 40 mg DAILY LUIS A Administration - Patient Studies Lab Studies: Microbiology Studies 01/29/18 13:00 MRSA Culture (Admit) - Final Naris MRSA NOT DETECTED Lab Studies 01/31/18 01/31/18 01/31/18 Range/Units 07:25 05:50 05:50 WBC 6.3 (4.5-11.0) 10^3/ul RBC 4.57 (3.5-6.1) 10^6/uL Hgb 14.8 (14.0-18.0) g/dL Hct 43.2 (42.0-52.0) % MCV 94.5 (80.0-105.0) fl MCH 32.4 (25.0-35.0) pg MCHC 34.3 (31.0-37.0) g/dl RDW 14.1 (11.5-14.5) % Plt Count 186 (120.0-450.0) 10^3/uL MPV 10.3 (7.0-11.0) fl pCO2 (35-45) mm/Hg pO2 (80-100) mm/Hg HCO3 (21-28) mmol/L ABG pH (7.35-7.45) ABG Total CO2 (22-28) mmol.L ABG O2 Saturation (95-98) % ABG O2 Content (15-23) ML/dl ABG Base Excess (-2.0-3.0) mmol/L ABG Hemoglobin (11.7-17.4) g/dL ABG Carboxyhemoglobin (0.5-1.5) % POC ABG HHb (Measured) (0-5) % ABG Methemoglobin (0.0-3.0) % ABG O2 Capacity (16-24) mL/dl Hgb O2 Saturation (95.0-98.0) % FiO2 % Sodium 146 (132-148) mmol/L Potassium 3.5 L (3.6-5.0) mmol/L Chloride 113 H (98-107) mmol/L Carbon Dioxide 24 (21-33) mmol/L Anion Gap 13 (10-20) BUN 8 (7-21) mg/dL Creatinine 1.1 (0.8-1.5) mg/dl Est GFR ( Amer) > 60 Est GFR (Non-Af Amer) > 60 Random Glucose 81 (70-110) mg/dL Calcium 8.3 L (8.4-10.5) mg/dL Phosphorus 3.1 (2.5-4.5) mg/dL Magnesium 1.9 (1.7-2.2) mg/dL Total Bilirubin 0.5 (0.2-1.3) mg/dL AST 39 (17-59) U/L ALT 28 (7-56) U/L Alkaline Phosphatase 66 (38-126) U/L Total Protein 6.2 (5.8-8.3) g/dL Albumin 3.2 (3.0-4.8) g/dL Globulin 3.0 gm/dL Albumin/Globulin Ratio 1.1 (1.1-1.8) 01/31/18 Range/Units 05:42 WBC (4.5-11.0) 10^3/ul RBC (3.5-6.1) 10^6/uL Hgb (14.0-18.0) g/dL Hct (42.0-52.0) % MCV (80.0-105.0) fl MCH (25.0-35.0) pg MCHC (31.0-37.0) g/dl RDW (11.5-14.5) % Plt Count (120.0-450.0) 10^3/uL MPV (7.0-11.0) fl pCO2 31 L (35-45) mm/Hg pO2 133.0 H (80-100) mm/Hg HCO3 20.6 L (21-28) mmol/L ABG pH 7.43 (7.35-7.45) ABG Total CO2 21.6 L (22-28) mmol.L ABG O2 Saturation 99.6 H (95-98) % ABG O2 Content 18.9 (15-23) ML/dl ABG Base Excess -2.7 L (-2.0-3.0) mmol/L ABG Hemoglobin 13.6 (11.7-17.4) g/dL ABG Carboxyhemoglobin 1.2 (0.5-1.5) % POC ABG HHb (Measured) 0.4 (0-5) % ABG Methemoglobin 0.8 (0.0-3.0) % ABG O2 Capacity 19.0 (16-24) mL/dl Hgb O2 Saturation 97.6 (95.0-98.0) % FiO2 30.0 % Sodium (132-148) mmol/L Potassium (3.6-5.0) mmol/L Chloride (98-107) mmol/L Carbon Dioxide (21-33) mmol/L Anion Gap (10-20) BUN (7-21) mg/dL Creatinine (0.8-1.5) mg/dl Est GFR ( Amer) Est GFR (Non-Af Amer) Random Glucose (70-110) mg/dL Calcium (8.4-10.5) mg/dL Phosphorus (2.5-4.5) mg/dL Magnesium (1.7-2.2) mg/dL Total Bilirubin (0.2-1.3) mg/dL AST (17-59) U/L ALT (7-56) U/L Alkaline Phosphatase (38-126) U/L Total Protein (5.8-8.3) g/dL Albumin (3.0-4.8) g/dL Globulin gm/dL Albumin/Globulin Ratio (1.1-1.8) Laboratory Results - last 24 hr 01/31/18 01/31/18 01/31/18 05:42 05:50 05:50 WBC 6.3 RBC 4.57 Hgb 14.8 Hct 43.2 MCV 94.5 MCH 32.4 MCHC 34.3 RDW 14.1 Plt Count 186 MPV 10.3 pCO2 31 L pO2 133.0 H HCO3 20.6 L ABG pH 7.43 ABG Total CO2 21.6 L ABG O2 Saturation 99.6 H ABG O2 Content 18.9 ABG Base Excess -2.7 L ABG Hemoglobin 13.6 ABG Carboxyhemoglobin 1.2 POC ABG HHb (Measured) 0.4 ABG Methemoglobin 0.8 ABG O2 Capacity 19.0 Hgb O2 Saturation 97.6 FiO2 30.0 Sodium 146 Potassium 3.5 L Chloride 113 H Carbon Dioxide 24 Anion Gap 13 BUN 8 Creatinine 1.1 Est GFR ( Amer) > 60 Est GFR (Non-Af Amer) > 60 Random Glucose 81 Calcium 8.3 L Phosphorus Magnesium Total Bilirubin 0.5 AST 39 ALT 28 Alkaline Phosphatase 66 Total Protein 6.2 Albumin 3.2 Globulin 3.0 Albumin/Globulin Ratio 1.1 01/31/18 07:25 WBC RBC Hgb Hct MCV MCH MCHC RDW Plt Count MPV pCO2 pO2 HCO3 ABG pH ABG Total CO2 ABG O2 Saturation ABG O2 Content ABG Base Excess ABG Hemoglobin ABG Carboxyhemoglobin POC ABG HHb (Measured) ABG Methemoglobin ABG O2 Capacity Hgb O2 Saturation FiO2 Sodium Potassium Chloride Carbon Dioxide Anion Gap BUN Creatinine Est GFR ( Amer) Est GFR (Non-Af Amer) Random Glucose Calcium Phosphorus 3.1 Magnesium 1.9 Total Bilirubin AST ALT Alkaline Phosphatase Total Protein Albumin Globulin Albumin/Globulin Ratio Critical Care Progress Note - Nutrition Nutrition: Nutrition Category Date Time Status NPO Diet [DIET] Diets 01/29/18 Breakfast Ordered Attending/Attestation - Attestation I have personally seen and examined this patient.: Yes I have fully participated in the care of the patient.: Yes I have reviewed all pertinent clinical information: Yes Notes (Text): 01/31/18 15:58 32 yo male with SE on Dilantin, Keppra and Lamictal and Propofol drip as well as Versed drip, intubated. Attempt at weaning BZD drips resulted in recurrent seziures, Propofol restarted, seizures stopped. transfer to tertiary center for cont EEG monitoring pending. protective lung vent strategy, HOB>35, oral hygiene. DVT/GI prophylaxis
[2018-01-31] MEDS ORDERED: Phenytoin 100 mg/2 ml Inj ONE (14:23)
--- NOTE | 2018-01-31 14:56 | PCM.EEG ---
Electroencephalogram Report - Electroencephalogram Report Procedure Date: 01/31/18 Interpretation: Indication: Status epilepticus. Medications were reviewed. Technical: This is a digitally recorded electroencephalogram. The international 10-20 electrode placement system is used for scalp electrode placement. Eighteen channels of scalp EEG are recorded Another channel was used for for ECG. The data are stored digitally and reviewed in reformatted montages for optimal display. Background: Small amount of beta activities are seen. Diffuse Abnormality: No well formed alpha activity was seen. Increased beta activity was seen intermittently. Markedly suppressed EEG activity was observed. Focal abnormality: Periodic lateralized discharge was seen. This is seen over the Right hemisphere. A focal seizure was noted to initiate in the right parietal lobe and generalize shortly after. This lasted about 12 seconds. Impression: Normal EEG. No focal slowing no seizure like activity was observed. Correlation with clinical findings is needed. Impression: This EEG is abnormal. Epileptiform discharge was seen. This can represent a potential seizure focus. Clinical correlation is needed.
[2018-01-31] MEDS ORDERED: Midazolam 2 MG/2 ML VIAL ONE (17:51)
[2018-01-31 18:46] VITALS: BP 135/88; PULSE 88; TEMP 101.5; O2SAT 99
--- NOTE | 2018-02-01 18:56 | CP.PCM.DIS ---
Provider - Provider Date of Admission: 01/29/18 11:26 Attending physician: Raymundo Moseley MD Primary care physician: NO FAMILY PROVIDER Consults: ICU Time Spent in preparation of Discharge (in minutes): 30 Diagnosis - Discharge Diagnosis (1) Recurrent seizures Status: Chronic Hospital Course - Lab Results Lab Results: Micro Results 01/29/18 13:00 Naris MRSA Culture (Admit) - Final MRSA NOT DETECTED Most Recent Lab Values WBC 6.3 10^3/ul (4.5-11.0) 01/31/18 05:50 RBC 4.57 10^6/uL (3.5-6.1) 01/31/18 05:50 Hgb 14.8 g/dL (14.0-18.0) 01/31/18 05:50 Hct 43.2 % (42.0-52.0) 01/31/18 05:50 MCV 94.5 fl (80.0-105.0) 01/31/18 05:50 MCH 32.4 pg (25.0-35.0) 01/31/18 05:50 MCHC 34.3 g/dl (31.0-37.0) 01/31/18 05:50 RDW 14.1 % (11.5-14.5) 01/31/18 05:50 Plt Count 186 10^3/uL (120.0-450.0) 01/31/18 05:50 MPV 10.3 fl (7.0-11.0) 01/31/18 05:50 Gran % 57.8 % (50.0-68.0) 01/30/18 06:35 Lymph % (Auto) 30.3 % (22.0-35.0) 01/30/18 06:35 Carson % (Auto) 9.0 % (1.0-6.0) H 01/30/18 06:35 Eos % (Auto) 2.6 % (1.5-5.0) 01/30/18 06:35 Baso % (Auto) 0.3 % (0.0-3.0) 01/30/18 06:35 Gran # 3.39 (1.4-6.5) 01/30/18 06:35 Lymph # (Auto) 1.8 (1.2-3.4) 01/30/18 06:35 Carson # (Auto) 0.5 (0.1-0.6) 01/30/18 06:35 Eos # (Auto) 0.2 (0.0-0.7) 01/30/18 06:35 Baso # (Auto) 0.02 K/mm3 (0.0-2.0) 01/30/18 06:35 PT 10.0 SECONDS (9.4-12.5) 01/29/18 02:12 INR 0.88 (0.93-1.08) L 01/29/18 02:12 APTT 29.4 Seconds (25.1-36.5) 01/29/18 02:12 pCO2 31 mm/Hg (35-45) L 01/31/18 05:42 pO2 133.0 mm/Hg (80-100) H 01/31/18 05:42 HCO3 20.6 mmol/L (21-28) L 01/31/18 05:42 ABG pH 7.43 (7.35-7.45) 01/31/18 05:42 ABG Total CO2 21.6 mmol.L (22-28) L 01/31/18 05:42 ABG O2 Saturation 99.6 % (95-98) H 01/31/18 05:42 ABG O2 Content 18.9 ML/dl (15-23) 01/31/18 05:42 ABG Base Excess -2.7 mmol/L (-2.0-3.0) L 01/31/18 05:42 ABG Hemoglobin 13.6 g/dL (11.7-17.4) 01/31/18 05:42 ABG Carboxyhemoglobin 1.2 % (0.5-1.5) 01/31/18 05:42 POC ABG HHb (Measured) 0.4 % (0-5) 01/31/18 05:42 ABG Methemoglobin 0.8 % (0.0-3.0) 01/31/18 05:42 ABG O2 Capacity 19.0 mL/dl (16-24) 01/31/18 05:42 ABG Potassium 3.5 mmol/L (3.6-5.2) L 01/30/18 05:00 Hgb O2 Saturation 97.6 % (95.0-98.0) 01/31/18 05:42 Sodium 146.0 mmol/L (132-148) 01/30/18 05:00 Chloride 118.0 mmol/L (98-107) H 01/30/18 05:00 Glucose 79 mg/dl (75-110) 01/30/18 05:00 Lactate 1.0 mmol/L (0.7-2.1) 01/30/18 05:00 Mechanical Rate 16 01/29/18 11:55 FiO2 30.0 % 01/31/18 05:42 Tidal Volume 400 01/29/18 11:55 PEEP 5 01/29/18 11:55 Sodium 146 mmol/L (132-148) 01/31/18 05:50 Potassium 3.5 mmol/L (3.6-5.0) L 01/31/18 05:50 Chloride 113 mmol/L (98-107) H 01/31/18 05:50 Carbon Dioxide 24 mmol/L (21-33) 01/31/18 05:50 Anion Gap 13 (10-20) 01/31/18 05:50 BUN 8 mg/dL (7-21) 01/31/18 05:50 Creatinine 1.1 mg/dl (0.8-1.5) 01/31/18 05:50 Est GFR ( Amer) > 60 01/31/18 05:50 Est GFR (Non-Af Amer) > 60 01/31/18 05:50 Random Glucose 81 mg/dL (70-110) 01/31/18 05:50 Hemoglobin A1c 5.7 % (4.2-6.5) 01/29/18 06:40 Calcium 8.3 mg/dL (8.4-10.5) L 01/31/18 05:50 Phosphorus 3.1 mg/dL (2.5-4.5) 01/31/18 07:25 Magnesium 1.9 mg/dL (1.7-2.2) 01/31/18 07:25 Total Bilirubin 0.5 mg/dL (0.2-1.3) 01/31/18 05:50 AST 39 U/L (17-59) 01/31/18 05:50 ALT 28 U/L (7-56) 01/31/18 05:50 Alkaline Phosphatase 66 U/L (38-126) 01/31/18 05:50 Lactate Dehydrogenase 340 U/L (333-699) 01/29/18 02:12 Total Creatine Kinase 198 U/L (35-230) 01/29/18 02:12 Troponin I < 0.01 ng/mL 01/29/18 06:40 Total Protein 6.2 g/dL (5.8-8.3) 01/31/18 05:50 Albumin 3.2 g/dL (3.0-4.8) 01/31/18 05:50 Globulin 3.0 gm/dL 01/31/18 05:50 Albumin/Globulin Ratio 1.1 (1.1-1.8) 01/31/18 05:50 Triglycerides 47 mg/dL (35-160) 01/29/18 06:40 Cholesterol 125 mg/dL (130-200) L 01/29/18 06:40 LDL Cholesterol Direct 51 mg/dL (0-129) 01/29/18 06:40 HDL Cholesterol 58 mg/dL (29-60) 01/29/18 06:40 Lipase 176 U/L (23-300) 01/29/18 02:12 TSH 3rd Generation 1.49 mIU/mL (0.46-4.68) 01/29/18 06:40 Prolactin 11.3 ng/mL (3.7-17.9) 01/29/18 09:30 Arterial Blood Potassium 3.5 mmol/L (3.6-5.2) L 01/30/18 05:00 Urine Color Yellow (YELLOW) 01/29/18 08:30 Urine Appearance Clear (CLEAR) 01/29/18 08:30 Urine pH 6.0 (4.7-8.0) 01/29/18 08:30 Ur Specific [place] >= 1.030 (1.005-1.035) 01/29/18 08:30 Urine Protein Negative mg/dL (<30 mg/dL) 01/29/18 08:30 Urine Glucose (UA) Negative mg/dL (NEGATIVE) 01/29/18 08:30 Urine Ketones Negative mg/dL (NEGATIVE) 01/29/18 08:30 Urine Blood Negative (NEGATIVE) 01/29/18 08:30 Urine Nitrate Negative (NEGATIVE) 01/29/18 08:30 Urine Bilirubin Negative (NEGATIVE) 01/29/18 08:30 Urine Urobilinogen 0.2 E.U./dL (<1 E.U./dL) 01/29/18 08:30 Ur Leukocyte Esterase Negative Nora/uL (NEGATIVE) 01/29/18 08:30 Urine Opiates Screen Negative (NEGATIVE) 01/29/18 08:30 Urine Methadone Screen Negative (NEGATIVE) 01/29/18 08:30 Ur Barbiturates Screen Negative (NEGATIVE) 01/29/18 08:30 Lamotrigine 1.1 mcg/mL (4.0-18.0) L 01/29/18 06:40 Ur Phencyclidine Scrn Negative (NEGATIVE) 01/29/18 08:30 Ur Amphetamines Screen Negative (NEGATIVE) 01/29/18 08:30 U Benzodiazepines Scrn Negative (NEGATIVE) 01/29/18 08:30 U Oth Cocaine Metabols Negative (NEGATIVE) 01/29/18 08:30 U Cannabinoids Screen Negative (NEGATIVE) 01/29/18 08:30 - Hospital Course Hospital Course: Stefano Engel, PGY-1 Discharge Summary for Hospitalist Service 32 year old male with past medical history of epilepsy who presented to [facility] ED for hemoptysis and chest pain. Patient noted to have multiple episodes of generalized tonic clonic seizures resistant to Ativan and Keppra, requiring propofol, Midazolam drip, and intubation. EEGs were performed which revealed seizures with multiple focal discharges in R central parietal region. Patient began on home medication Lamotrigine, along with Keppra, Ativan and Phenytoin for persistent seizure activity. Patient was weened off sedation in ICU, and transferred to [facility] ER for continuous EEG monitoring. Discharge Exam - Head Exam Head Exam: ATRAUMATIC, NORMAL INSPECTION, NORMOCEPHALIC - Respiratory Exam Respiratory Exam: NORMAL BREATHING PATTERN - Cardiovascular Exam Cardiovascular Exam: RRR, +S1, +S2 - GI/Abdominal Exam GI & Abdominal Exam: Soft, Unremarkable. absent: Tenderness - Skin Skin Exam: Intact, Normal Color, Warm Discharge Plan - Follow Up Plan Condition: STABLE Disposition: Trans to Other Acute Care Hosp Referrals: FAMILY PROVIDER,NO [Primary Care Provider] -
== END 2018-01-31 18:58 | disposition short-term general hospital (02) | DRG 100 ==
LOC: ED 01:29 → ERH 03:49 → OBSVTOIN 11:26 → ERH 12:11 → CCU 12:46
PROVIDERS: ADMIT Internal Medicine; ATTEND Internal Medicine
PROC: 0BH17EZ Insertion of Endotracheal Airway into Trachea, Via Natural or Artificial Opening (ICD-10-PCS; principal; 2018-01-29)
PROC: 5A1945Z Respiratory Ventilation, 24-96 Consecutive Hours (ICD-10-PCS; 2018-01-29)
DX: G40.901 Epilepsy, unspecified, not intractable, with status epilepticus (principal); J96.91 Respiratory failure, unspecified with hypoxia; G93.40 Encephalopathy, unspecified; R04.2 Hemoptysis; R07.9 Chest pain, unspecified; F17.210 Nicotine dependence, cigarettes, uncomplicated

== ENCOUNTER 2018-02-15 15:11 | Emergency (ER) | payer SELFPAY ==
[2018-02-15 15:11] VITALS: BMI 21.4
[2018-02-15 15:22] VITALS: TEMP 99.3
--- NOTE | 2018-02-15 16:38 | ED PDOC ---
Arrival/HPI - General Chief Complaint: Upper Extremity Problem/Injury Time Seen by Provider: 02/15/18 15:16 Historian: Patient - History of Present Illness Narrative History of Present Illness (Text): 02/15/18 16:31 32yo male with past medical history of seizure who present to Emergency department requesting a wound check to his left arm. Patient states while at [facility] for seizure he sustained injury to his left forearm/wrist. Notes that he is not sure what type of injury he sustained, but he came to Emergency department because he have a soft splint to his wrist and wound dressing underneath to the distal forearm. He denies pain, focal weakness, paresthesia, discharge from the wound. Past Medical History - Provider Review Nursing Documentation Reviewed: Yes - Cardiac Hx Cardiac Disorders: No - Pulmonary Hx Respiratory Disorders: No Hx Asthma: No - Neurological Hx Neurological Disorder: Yes Hx Seizures: Yes - HEENT Hx HEENT Disorder: No Hx Blind: No - Renal Hx Renal Disorder: No - Endocrine/Metabolic Hx Endocrine Disorders: No - Hematological/Oncological Hx Blood Disorders: No - Integumentary Hx Dermatological Disorder: Yes Hx Squamous Cell Carcinoma: No Other/Comment: LACERATIONS - Musculoskeletal/Rheumatological Hx Musculoskeletal Disorders: No - Gastrointestinal Hx Gastrointestinal Disorders: No - Genitourinary/Gynecological Hx Genitourinary Disorders: No - Psychiatric Hx Psychophysiologic Disorder: No Hx Substance Use: (unknown) - Surgical History Hx Appendectomy: Yes Family/Social History - Physician Review Nursing Documentation Reviewed: Yes Family/Social History: Unknown Family HX Smoking Status: Heavy Smoker > 10 Cigarettes Daily Hx Alcohol Use: (unknown) Hx Substance Use: (unknown) Allergies/Home Meds Allergies/Adverse Reactions: Allergies No Known Allergies Allergy (Unverified 02/15/18 15:15) Home Medications: Home Meds Medication Instructions Recorded Confirmed Lamotrigine [Lamictal Xr] 300 mg PO BID 01/29/18 02/15/18 Review of Systems - Physician Review All systems were reviewed & negative as marked: Yes - Review of Systems Constitutional: Normal Eyes: Normal ENT: Normal Respiratory: Normal Cardiovascular: Normal Gastrointestinal: Normal Genitourinary Male: Normal Musculoskeletal: Other (Wound check to left forearm/wrist) Skin: Normal Neurological: Normal Endocrine: Normal Hemo/Lymphatic: Normal Psychiatric: Normal Physical Exam Vital Signs Reviewed: Yes Vital Signs Temp Pulse Resp BP Pulse Ox 02/15/18 17:50 77 18 121/76 100 02/15/18 15:16 99.3 F 62 16 120/78 99 Temperature: Afebrile Blood Pressure: Normal Pulse: Regular Respiratory Rate: Normal Appearance: Positive for: Well-Appearing, Non-Toxic, Comfortable Pain Distress: None Mental Status: Positive for: Alert and Oriented X 3 - Systems Exam Head: Present: Atraumatic, Normocephalic Pupils: Present: PERRL Extroacular Muscles: Present: EOMI Conjunctiva: Present: Normal Mouth: Present: Moist Mucous Membranes Neck: Present: Normal Range of Motion Respiratory/Chest: Present: Clear to Auscultation, Good Air Exchange. No: Respiratory Distress, Accessory Muscle Use Cardiovascular: Present: Regular Rate and Rhythm, Normal S1, S2. No: Murmurs Abdomen: No: Tenderness, Distention, Peritoneal Signs Back: Present: Normal Inspection Upper Extremity: Present: Normal ROM (Left wrist), NORMAL PULSES, Neurovascularly Intact, Other (Dressing and steri strip noted in place to left distal forearm. Soft splint noted to the wrist). No: Cyanosis, Edema, Tenderness, Swelling, Deformity Lower Extremity: Present: Normal Inspection. No: Edema Neurological: Present: GCS=15, CN II-XII Intact, Speech Normal Skin: Present: Warm, Dry, Normal Color, Other (Sutures noted intact to 3rd and 4th right and left fingers. No sign of infection. No discharge. No erythema. ). No: Rashes Psychiatric: Present: Alert, Oriented x 3, Normal Insight, Normal Concentration Medical Decision Making ED Course and Treatment: 02/15/18 18:33 Soft splint was removed. No sign of fracture noted. PT however have pain with FROM of the left wrist. Left forearm/wrist xray - No acute fracture. Dorsal splint was re applied, PT remain NVI , strength 5/5. radial pulse palpable.s/p. Steri strip and wound on distal left volar forearm was removed and healing superficial laceration was noted. It was redressed. Pt states he will take off the sutures when he gets back to [place] where he came from. states his going back next week. - RAD Interpretation Radiology Orders: 02/15/18 15:49 FOREARM LEFT [RAD] Stat 02/15/18 15:50 WRIST, LEFT 3 VIEWS [RAD] Stat Disposition/Present on Arrival - Present on Arrival Any Indicators Present on Arrival: No History of DVT/PE: No History of Uncontrolled Diabetes: No Urinary Catheter: Yes (inserted in ed) History of Decub. Ulcer: No History Surgical Site Infection Following: None - Disposition Have Diagnosis and Disposition been Completed?: Yes Diagnosis: Visit for wound check Disposition: HOME/ ROUTINE Disposition Time: 18:00 Patient Plan: Discharge Condition: STABLE Discharge Instructions (ExitCare): Wound Care (DC) Additional Instructions: Keep wound clean and dry Follow up with your doctor Return to Emergency department for any new or worsening symptoms Referrals: Elaine Cha MD [Staff Provider] - Follow up with primary Forms: [employer] (Icelandic)
--- NOTE | 2018-02-15 16:57 | RAD ---
Date of service: 02/15/2018 PROCEDURE: Left Wrist Radiographs. HISTORY: Left upper extremity Pain. No history of recent/ related trauma provided COMPARISON: None. FINDINGS: BONES: Normal. No fracture. JOINTS: Normal. No dislocation. SOFT TISSUES: Normal. OTHER FINDINGS: None. IMPRESSION: Normal left wrist radiographs.
--- NOTE | 2018-02-15 17:00 | RAD ---
Date of service: 02/15/2018 PROCEDURE: Radiographs of the Left Forearm HISTORY: forearm pain COMPARISON: None available. TECHNIQUE: Frontal and lateral views obtained. FINDINGS: BONES: No fracture or destructive lesion. JOINT SPACES: Unremarkable. OTHER FINDINGS: None. IMPRESSION: Unremarkable radiographs of the left forearm.
[2018-02-15 18:33] VITALS: BP 121/76; PULSE 77; RESP 18; O2SAT 100
== END 2018-02-15 18:33 | disposition home or self-care (01) ==
LOC: ED 15:11
DX: Z48.00 Encounter for change or removal of nonsurgical wound dressing (principal); F17.210 Nicotine dependence, cigarettes, uncomplicated

== ENCOUNTER 2018-03-05 14:28 | Emergency (ER) | payer SELFPAY ==
[2018-03-05 14:28] VITALS: BMI 21.4
== END 2018-03-05 14:47 | disposition left against medical advice (07) ==
LOC: ED 14:28
DX: Z02.89 Encounter for other administrative examinations (principal); R10.9 Unspecified abdominal pain